=== PATIENT | male | born 1985 | race Caucasian/White ===

== ENCOUNTER 2020-02-20 14:15 | Emergency (ER) | payer SELFPAY ==
[2020-02-20 14:17] VITALS: BP 143/88; PULSE 101; RESP 18; TEMP 35.9; O2SAT 97; BMI 25.1
--- NOTE | 2020-02-20 14:31 | XR_ITS ---
WS: [id number] RIGHT ELBOW: 3 VIEW(S) TECHNIQUE: AP, oblique and lateral. HISTORY: swelling and pain COMPARISON: None available. No acute fractures or dislocation. No joint effusion. Mild soft tissue swelling over the olecranon. XR/XR elbow RT min 3V* [id number] IMPRESSION: Suspect mild olecranon bursitis. No fracture.
[2020-02-20 15:15] VITALS: RESP 17
--- NOTE | 2020-02-20 15:45 | ED_ITS ---
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 it would got dislocated the taking care of this swelling just started this morning though MD Complaint: extremity swelling Location: right and elbow Severity scale (1-10): 1 Quality: other Associated symptoms: Reports no associated symptoms; Deny chest pain, fever(s) or rash Review of Systems Narrative: Right elbow with swelling Const: Denies: fever, chills or body aches Eyes: Denies: change in vision or blurry vision ENMT: Denies: throat pain or nasal congestion Card: Denies: chest pain or shortness of breath on exertion Resp: Denies: shortness of breath, productive cough or non-productive cough GI: Denies: abdominal pain, nausea or vomiting : Denies: difficulty urinating Musc: Denies: extremity pain Skin/Breast: Denies: rash Neuro: Denies: headache Psych: Denies: anxiety or depression James/Lymph: Denies: easy bruising PFSH ED PFSH: Social History Smoking and tobacco status: current every day smoker Physical Exam Const: COMMON NORMALS: no apparent distress, average body habitus and oriented x3 HENMT: COMMON NORMALS: normocephalic HEAD & SCALP: normal to inspection and normocephalic FACE & SINUS: normal facial exam Eye: COMMON NORMALS: conjunctivae normal GENERAL EYE: normal appearance of both eyes CONJUNCTIVA: Yes conjunctivae normal Neck/C-Spine: COMMON NORMALS: no JVD Chest: COMMONS NORMALS: inspection of chest normal Resp: COMMON NORMALS: normal respiratory effort and clear to auscultation bilaterally AUSCULTATION: clear to auscultation bilaterally Cardio: COMMON NORMALS: no JVD, regular rate and regular rhythm RATE: regular rate RHYTHM: regular rhythm GI: COMMON NORMALS: normal to inspection, nondistended, normoactive bowel sounds Extremity: COMMON NORMALS: normal to inspection and full ROM RIGHT UPPER EXTREMITY: Yes elbow joint (Has swelling over olecranial and bursa) Neuro: COMMON NORMALS: oriented x3 Procedures Joint Aspiration/Injection Joint Asp./Inject. 1: Time Out Performed: No Side of body: right Joint Aspirated: elbow Ultrasound Guidance: No Skin Prep: Povidone-Iodine1% Local Anesthetic: lidocaine 1% Amount of anesthesia used (mL): 1 Needle Size Used: 22G Fluid Obtained: turbid Total fluid obtained (mL): 8 Patient Tolerated Procedure: well Course Vital Signs: Vital signs: Vital Signs Temperature 96.7 F L 02/20/20 14:17 Pulse Rate 101 H 02/20/20 14:17 Respiratory Rate 18 02/20/20 14:17 Blood Pressure 143/88 02/20/20 14:17 Pulse Oximetry 97 02/20/20 14:17 Discharge Plan Discharge Prescriptions: No Action No Known Home Medications RF: 0 Coding Level of Care Code ED 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
[2020-02-20 16:11] VITALS: RESP 16
== END 2020-02-20 16:07 | disposition home or self-care (01) ==
PROVIDERS: Emergency Provider Nurse Practitioner Family
DX: R22.31 Localized swelling, mass and lump, right upper limb (principal); F17.210 Nicotine dependence, cigarettes, uncomplicated
CPT/HCPCS: 12345; 20605; 73080; 99282

== ENCOUNTER 2020-05-04 02:22 | Emergency (ER) | payer SELFPAY ==
[2020-05-04] VITALS (13 sets, daily range): BP systolic 122–154; BP diastolic 64–95; PULSE 78–117; RESP 11–25; TEMP 36.7; O2SAT 89–98; BMI 23.0
--- NOTE | 2020-05-04 02:25 | XRR_ITS ---
PROCEDURE INFORMATION: Exam: XR Chest, 1 View Exam date and time: 05/04/2020 3:00 AM Age: 34 years old Clinical indication: Shortness of breath and other: Allergic reaction; Additional info: SOB TECHNIQUE: Imaging protocol: XR of the chest Views: 1 view. Other technique: Frontal portable upright view of the chest. COMPARISON: CR Chest 1 [place] [id number] 05/25/2019 12:40 AM FINDINGS: Lungs: The lungs are clear bilaterally. The pulmonary vasculature is normal. Pleural space: No pleural effusion. No pneumothorax. Heart/Mediastinum: The heart is normal in size and contour. Mediastinum: Stable. Bones/joints: Stable. XR/XR chest 1V portable [id number] IMPRESSION: No acute cardiopulmonary abnormality identified.
--- NOTE | 2020-05-04 02:26 | ECG_ITS ---
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 Measurements Intervals [place] Rate: 100 P: 68 SD: 116 QRS: 76 QRSD: 98 T: 60 QT: 345 QTc: 447 Interpretive Statements SINUS TACHYCARDIA WITH SHORT SD INTERVAL NONSPECIFIC T-WAVE ABNORMALITY ABNORMAL RHYTHM ECG Compared to ECG 11/19/2015 12:39:10 Short SD interval now present T-wave abnormality now present Electronically Signed On 05-04-2020 19:32:43 CDT by Julius Valencia M.D. [id number] f
--- NOTE | 2020-05-04 02:30 | W.ED.ALLEREA ---
HPI - Allergic Reaction General: Chief complaint: Allergic Reaction Stated complaint: ALLERGIC REACTION Time Seen by Provider: 05/04/20 02:25 Source: patient and EMS Mode of arrival: EMS Limitations: no limitations History of Present Illness: HPI narrative: 34-year-old male states he started having allergic reaction roughly 1 hour ago. Patient states he has had allergic reactions has EpiPen has not followed up with organizational research consultant yet. He did not use his EpiPen as he cannot find it. When EMS arrived he had severe facial swelling and shortness of breath. His blood pressures were normal. They gave him IV epinephrine 0.3 along with 25 mg of Benadryl. Patient had a full body rash per them as well. Patient still has slight swelling and wheezing but states he feels much improved edema states he has had an improvement as well. Patient is also admitted to using IV drugs today. MD complaint: allergic reaction and hives Onset (ago): hour(s) Associated symptoms: Deny abdominal pain, nausea or vomiting Review of Systems Const: Denies: fever(s), chills, body aches or change in appetite Eyes: Denies: blurry vision or eye discomfort ENMT: Denies: throat pain or dental pain Card: Denies: chest pain Resp: Reports: dyspnea GI: Denies: abdominal pain, nausea, vomiting or diarrhea : Denies: dysuria Musc: Denies: neck pain or back pain Skin/Breast: Reports: rash Neuro: Denies: headache(s) Psych: Denies: depression James/Lymph: Denies: easy bruising All/Imm: Denies: urticaria PFSH ED PFSH: Social History Smoking and tobacco status: current every day smoker Physical Exam Const: COMMON NORMALS: patient oriented x3 GENERAL APPEARANCE: in distress and ill appearing HENMT: COMMON NORMALS: normocephalic and atraumatic HEAD & SCALP: normocephalic and atraumatic Eye: COMMON NORMALS: Equal, round and reactive pupils present and EOMs intact bilaterally PUPIL: Yes Equal, round and reactive pupils present Neck/C-Spine: COMMON NORMALS: full ROM and supple Chest: COMMONS NORMALS: normal inspection of the chest and normal palpation of entire chest wall Resp: COMMON NORMALS: No retractions and No use of accessory muscles EFFORT & INSPECTION: Yes tachypneic and Yes respiratory distress AUSCULTATION: wheezes Cardio: COMMON NORMALS: regular rhythm and No murmurs present (Cardio) RATE: tachycardic RHYTHM: regular rhythm GI: COMMON NORMALS: Normal to inspection, nondistended, normoactive bowel sounds present, Soft to palpation, non-tender and no masses PALPATION: Yes Soft to palpation Extremity: COMMON NORMALS: normal to inspection and full ROM Neuro: COMMON NORMALS: patient oriented x3, moves all extremities and no focal motor deficits Psych: COMMON NORMALS: mental status grossly normal, Normal thought process present and cooperative THOUGHT PROCESS: Normal thought process present Skin: COMMON NORMALS: no wounds NARRATIVE SKIN EXAM: urticaria to arms Course Vital Signs: Vital signs: Vital Signs Temperature 98.0 F 05/04/20 02:28 Pulse Rate 78 05/04/20 04:07 Respiratory Rate 18 05/04/20 04:07 Blood Pressure 122/64 05/04/20 04:07 Pulse Oximetry 96 05/04/20 04:07 MDM - Allergic Reaction MDM Narrative: Medical decision making narrative: 0305 Walter presents here with severe allergic reaction. Patient required IV epinephrine along with racemic treatments and Benadryl and steroids. I strongly recommended ICU admission and patient refused. I spoke to him multiple times informed him that this could rebound and his condition could worsen greatly. He understands this and he even knows of the risk of . Patient does have medical decision-making capacity. Patient states he will stay here for 1 more hour. 0402 patient still refusing to stay and will sign out AMA. He understands the risks and does have medical decision make capacity. He is to return if he changes his mind or worsens. Lab Data: Labs: Lab Results 05/04/20 05/04/20 Range/Units 02:32 02:32 WBC 14.8 H (4.0-10.0) 10^3/ uL RBC 5.12 (4.1-5.3) 10^6/u L Hgb 14.4 (11.7-16.6) g/dL Hct 44.9 (42.0-52.0) % MCV 87.7 (80-94) fL MCH 28.1 (28.0-34.0) pg MCHC 32.1 (30.0-36.0) g/dL RDW 13.3 (12.1-15.1) % Plt Count 371 (130-400) 10^3/c mm MPV 9.7 (7.4-10.4) fL Neut % (Auto) 27.4 % Lymph % (Auto) 65.8 % [place] % (Auto) 5.5 % Eos % (Auto) 1.0 % Baso % (Auto) 0.2 % Neut # (Auto) 4.1 (1.8-7.7) 10^3/u L Lymph # (Auto) 9.8 H (0.8-4.8) 10^3/u L [place] # (Auto) 0.8 (0.2-0.9) 10^3/u L Eos # (Auto) 0.2 (0.0-0.8) 10^3/u L Baso # (Auto) 0.0 (0.0-0.1) 10^3/u L Nucleated RBC % (a uto) 0 % Nucleated RBCs # 0.0 /100WBC Sodium 135 L (136-145) mmol/L Potassium 3.2 L (3.5-5.1) mmol/L Chloride 98 (98-107) mmol/L Carbon Dioxide 23 (22-29) mmol/L Anion Gap 17.2 (5-19) BUN 14 (6-20) mg/dL Creatinine 0.8 (0.7-1.2) mg/dL GFR Calculation 111.3 (90-130) mL/min Glucose 163 H (65-115) mg/dL Calculated Osmolal ity 280 L (285-295) mOsm/k g Calcium 8.7 (8.5-10.5) mg/dL Total Bilirubin 0.4 (0.15-1.2) mg/dL AST 21 (0-40) U/L ALT 15 (0-41) U/L Alkaline Phosphata se 88 (40-130) IU/L Total Protein 7.0 (6.6-8.7) g/dL Albumin 4.2 (3.5-5.2) g/dL Globulin 2.8 (1.3-4.6) g/dL EKG Data^: EKG 1: Attestation: I personally reviewed and interpreted this EKG as follows: EKG interpretation date: 05/04/20 EKG interpretation time: 02:52 Interpretation: Sinus tachycardia heart rate [address] or T wave abnormalities QRS 98 QTC 402 Critical Care Time Critical Care Time: Critical Care Time: Yes Total Critical Care Time: 36 Attestation: This case had a high probability of a clinically significant, sudden, or life threatening deterioration of this patient's condition which required my full and direct attention, intervention and personal management. Discharge Plan Discharge Patient Disposition: Left Against Medical Advice Clinical Impression: Allergic reaction Qualifiers: Encounter type: initial encounter Qualified Code(s): T78.40XA - Allergy, unspecified, initial encounter Anaphylaxis Qualifiers: Encounter type: initial encounter Qualified Code(s): T78.2XXA - Anaphylactic shock, unspecified, initial encounter Condition: Stable Prescriptions: No Action No Known Home Medications RF: 0 Discharge Orders: Discharge Order (Routine); Ordered 05/04/20 Ordered By: Luisito Rae Discharge Diet: Advance as tolerated Discharge Activity: Resume usual activity Patient Instructions: Anaphylaxis (ED) Discharge Date/Time: 05/04/20 04:08 Coding Level of Care Code ED Critical Care Unit Nurse for Belinda Fwd Exam Comprehensive
[2020-05-04] MEDS: racepinephrine 0.5 mL Neb INHALATION (02:37)
[2020-05-04] MEDS: famotidine 20 mg/2 mL INJ 40 MG IVP (02:39)
[2020-05-04] MEDS: sodium chloride 0.9% 1,000 ML 999 ML IV (02:40)
[2020-05-04] MEDS: diphenhydrAMINE 50 mg/mL SDV 1mL IVP (02:40)
[2020-05-04 02:49] LABS: Alanine Aminotransferase 15 U/L (0-41); Albumin Level 4.2 g/dL (3.5-5.2); Alkaline Phosphatase 88 IU/L (40-130); Anion Gap 17.2 (5-19); Aspartate Amino Transferase 21 U/L (0-40); Blood Urea Nitrogen 14 mg/dL (6-20); Calcium 8.7 mg/dL (8.5-10.5); Carbon Dioxide 23 mmol/L (22-29); Chloride 98 mmol/L (98-107); Creatinine Clr Calc Pharmacy 143.7894; Globulin 2.8 g/dL (1.3-4.6); Glomerular Filtration Rate 111.3 mL/min (90-130); Glucose 163 mg/dL (65-115); Osmolality Calculated 280 mOsm/kg (285-295); Potassium 3.2 mmol/L (3.5-5.1); Sodium 135 mmol/L (136-145); Total Bilirubin 0.4 mg/dL (0.15-1.2)
[2020-05-04 02:57] LABS: Basophils % 0.2 %; Eosinophils # 0.2 10^3/uL (0.0-0.8); Hematocrit 44.9 % (42.0-52.0); Hemoglobin 14.4 g/dL (11.7-16.6); Lymphocytes # 9.8 10^3/uL (0.8-4.8); Lymphocytes % 65.8 %; Mean Corpuscular HGB Conc 32.1 g/dL (30.0-36.0); Mean Corpuscular Hemoglobin 28.1 pg (28.0-34.0); Mean Corpuscular Volume 87.7 fL (80-94); Mean Platelet Volume 9.7 fL (7.4-10.4); Monocytes # 0.8 10^3/uL (0.2-0.9); Monocytes % 5.5 %; Neutrophils # 4.1 10^3/uL (1.8-7.7); Neutrophils % 27.4 %; Nucleated Red Blood Cells % 0 %; Platelet Count 371 10^3/cmm (130-400); Red Blood Count 5.12 10^6/uL (4.1-5.3); Red Cell Distribution Width 13.3 % (12.1-15.1); White Blood Count 14.8 10^3/uL (4.0-10.0)
--- NOTE | 2020-05-04 03:15 | P.HP_ITS ---
Providers/Chief Complaint Admitting Physician: Julius Morgan MD Chief Complaint: REACTION History of Present Illness Walter Andrade is a 34 year old male Medications/Allergies Home Medications Medication Instructions Recorded Confirmed Last Taken Type No Known Home Medications 02/20/20 02/20/20 Unknown History Allergies Allergy/AdvReac Type Severity Reaction Status Date / Time No Known Allergies Allergy Verified 02/20/20 14:21 PFSH Acute PFSH: Social History Smoking and tobacco status: current every day smoker Vitals/I&O/Wt Last Vital Signs Temp 98.0 F 05/04/20 02:28 Pulse 105 H 05/04/20 02:51 Resp 14 05/04/20 02:51 BP 129/85 05/04/20 02:45 Pulse Ox 97 05/04/20 02:51 Weight last 48 hrs Weight 77.111 kg Data : 05/04/20 02:32 05/04/20 02:32 Coding Level of Care Code Acute 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
--- NOTE | 2020-05-04 03:18 | PC.NURSE ---
went in and spoke with pt he refuses to stay even with discussing the fact that he could go home and dei and he states he is going home.
--- NOTE | 2020-05-04 03:19 | PM.EVENT ---
Event Note Event Note: ER physician called me at 3:18 AM to admit patient for anaphylactic reaction to ICU. I received another call while I was looking up his previous records at 3:19 AM that patient wants to leave AGAINST MEDICAL ADVICE. Dr. perez has counseled him. I have not evaluated the patient myself. No physician patient interaction from hospitalist team established.
== END 2020-05-04 04:08 | disposition left against medical advice (07) ==
LOC: ER 03:04 → ICU 03:20 → ER 03:57
PROVIDERS: Emergency Provider Emergency Medicine
DX: T78.2XXA Anaphylactic shock, unspecified, initial encounter (principal); T78.40XA Allergy, unspecified, initial encounter; F17.210 Nicotine dependence, cigarettes, uncomplicated
CPT/HCPCS: 12345; 71045; 80053; 85025; 93005; 94640; 96360; 96361; 96374; 96375; 99283; 99284; J1200; J2930; J3490; J7030

== ENCOUNTER 2020-09-15 07:01 | Emergency (ER) | payer SELFPAY ==
[2020-09-15] VITALS (9 sets, daily range): BP systolic 111–134; BP diastolic 79–93; PULSE 85–118; RESP 17–22; TEMP 36.1; O2SAT 93–99; BMI 3124.4
--- NOTE | 2020-09-15 07:10 | XR_ITS ---
WS: [id number] Portable AP upright chest, 09/15/2020 Clinical Data: dyspnea/cough Comparison: Portable chest, 05/04/2020. Findings: No nodules, masses or effusions are seen. The heart is normal. The pulmonary vascularity is not increased. No pneumonia or pneumothorax is seen. Monitor leads on the chest wall. XR/XR chest 1V portable [id number] Impression: Negative chest.
--- NOTE | 2020-09-15 07:10 | ECG_ITS ---
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 Measurements Intervals [place] Rate: 99 P: 72 DE: 148 QRS: 72 QRSD: 96 T: 56 QT: 334 QTc: 430 Interpretive Statements SINUS RHYTHM Compared to ECG 05/04/2020 02:52:26 Sinus tachycardia no longer present Short DE interval no longer present T-wave abnormality no longer present Electronically Signed On 09-15-2020 10:11:59 LEATHER SKINNER by Horace Feliciano M.D. [id number]
[2020-09-15] MEDS: ipratropium-albuterol 3 mL Neb INHALATION (07:17)
[2020-09-15 07:19] LABS: ABG PCO2 47.6 mmHg (35-45); ABG PH Result 7.33 (7.35-7.45); Arterial Blood Gas Hematocrit 47.8 % (42-52); Base Excess ABG -1.7 mmol/L (-2.0-2.0); Blood Gas Allen Test Pos; Blood Gas Sample Type Arterial; Carboxyhemoglobin 1.6 %THgb (0.4-20.1); HCO3 ABG 24.8 mmol/L (22-26); HGB O2 Sat 98.3 % (95-100); Ionized Calcium Level - ABG 1.2 mmol/L (1.1-1.4); Methemoglobin 0.5 % (0.4-1.5); Oxygen Saturation ABG > 100.0; Potassium Level - ABG 3.1 mmol/L (3.5-5.0); Total Hemoglobin 15.6 g/dL (14-18)
[2020-09-15 07:20] LABS: Blood Gas Operator Identificat HARKR; Blood Gas Sample Site Radial, left; Oxygen Device NRB
--- NOTE | 2020-09-15 07:23 | W.ED.ALLEREA ---
HPI - Allergic Reaction General: Chief complaint: Allergic Reaction Stated complaint: allergic reaction Time Seen by Provider: 09/15/20 07:10 History of Present Illness: HPI narrative: 34-year-old male presents emergency room via EMS with allergic reaction. He has oxygen saturations in the mid 80s on arrival on 6 L by nasal cannula. He had received multiple medications prior to arrival including Solu-Medrol 125 mg epinephrine 0.5x2 and Benadryl 50 mg. The only thing that he knows that he was exposed to recently he states is exposure to cats. complaint: allergic reaction Onset (ago): minute(s) Exposure: other (? Animal dander) Associated symptoms: Reports difficulty breathing, facial swelling, hoarseness, itching, lip swelling and nausea; Deny abdominal pain, dysphagia, dizziness, rash, tongue swelling or vomiting Severity: severe Treatment prior to arrival: benadryl, epinephrine, oxygen and steroids Previous Allergic Reaction History: none Review of Systems Const: Denies: fever(s), chills, body aches, change in appetite, fatigue or malaise ENMT: Reports: hoarseness Card: Denies: chest pain, edema, dyspnea on exertion or orthopnea Resp: Denies: dyspnea, productive cough or non-productive cough GI: Reports: nausea; Denies: abdominal pain, vomiting or dysphagia : Denies: flank pain, dysuria, urinary frequency or urinary urgency Skin/Breast: Denies: rash or pruritus Neuro: Denies: dizziness All/Imm: Reports: facial swelling; Denies: tongue swelling [facility] ED PFSH: Medical History (Updated 09/17/20 @ 09:52 by Chilo Bella DO) Anaphylaxis Family History (Updated 09/15/20 @ 14:36 by Brandon Scott MD) Other CAD (coronary artery disease) Social History (Updated 09/15/20 @ 14:36 by Brandon Scott MD) Smoking and tobacco status: current every day smoker Alcohol intake: never Physical Exam Const: GENERAL APPEARANCE: cooperative ORIENTATION/CONSCIOUSNESS: Yes awake, Yes oriented to person, Yes oriented to place and Yes oriented to time HENMT: COMMON NORMALS: normocephalic, atraumatic and hearing grossly normal bilaterally HEAD & SCALP: normocephalic and atraumatic OTHER: Facial swelling of the lips eyelids sparing of the tongue however. Eye: COMMON NORMALS: Equal, round and reactive pupils present, EOMs intact bilaterally, conjunctivae normal and no scleral icterus CONJUNCTIVA: Yes conjunctivae normal PUPIL: Yes Equal, round and reactive pupils present Neck/C-Spine: COMMON NORMALS: full ROM, no lymphadenopathy, supple and no JVD OTHER: Mild stridor Lymph: LYMPHATIC: no lymphadenopathy noted and no lymphedema noted Resp: AUSCULTATION: wheezes Cardio: COMMON NORMALS: no JVD GI: COMMON NORMALS: Soft to palpation and No hepatosplenomegaly present AUSCULTATION: Yes normoactive bowel sounds PALPATION: Yes Soft to palpation, No Tenderness to palpation present (GI), No Guarding due to palpation present (GI) and Yes No hepatosplenomegaly present Extremity: COMMON NORMALS: normal to inspection, capillary refill normal, no clubbing, cyanosis or edema, no calf tenderness and no pedal edema Neuro: SENSORIUM/ORIENTATION: Yes oriented to person, Yes oriented to place and Yes oriented to time Course Vital Signs: Vital signs: Vital Signs Temperature 97.0 F L 09/15/20 07:03 Pulse Rate 85 09/15/20 12:23 Respiratory Rate 17 09/15/20 12:23 Blood Pressure 123/79 09/15/20 12:23 Pulse Oximetry 95 09/15/20 12:23 MDM - Allergic Reaction MDM Narrative: Medical decision making narrative: Patient was going to be admitted to the ICU for observation to unknown allergen. Patient improved while he was in the ER and decided to leave AMA we attempted to dissuade him against that advising him that he could get a rebound of the allergic reaction which could be fatal he expressed understanding and still wished to leave Lab Data: Labs: Lab Results 09/15/20 09/15/20 09/15/20 Range/Units 07:09 07:42 07:54 WBC 18.1 H (4.0-10.0) 10^3/ uL RBC 5.31 H (4.1-5.3) 10^6/u L Hgb 15.2 (11.7-16.6) g/dL Hct 47.3 (42.0-52.0) % MCV 89.1 (80-94) fL MCH 28.6 (28.0-34.0) pg MCHC 32.1 (30.0-36.0) g/dL RDW 13.4 (12.1-15.1) % Plt Count 404 H (130-400) 10^3/c mm MPV 9.1 (7.4-10.4) fL Neut % (Auto) 49.4 % Lymph % (Auto) 45.2 % [place] % (Auto) 4.0 % Eos % (Auto) 1.0 % Baso % (Auto) 0.2 % Neut # (Auto) 8.95 H (1.8-7.7) 10^3/u L Lymph # (Auto) 8.2 H (0.8-4.8) 10^3/u L [place] # (Auto) 0.7 (0.2-0.9) 10^3/u L Eos # (Auto) 0.2 (0.0-0.8) 10^3/u L Baso # (Auto) 0.0 (0.0-0.1) 10^3/u L Nucleated RBC % (a uto) 0 % Nucleated RBCs # 0.0 /100WBC Specimen Type Arterial Sample Site Radial, left ABG pH 7.33 L (7.35-7.45) ABG pCO2 47.6 H (35-45) mmHg ABG pO2 315.0 H (80.0-100.0) mmH g ABG HCO3 24.8 (22-26) mmol/L ABG O2 Saturation > 100.0 ABG Base Excess -1.7 (-2.0-2.0) mmol/ L Evelio Test Pos A-a O2 Gradient Not Reportable Hematocrit 47.8 (42-52) % Hgb O2 Saturation 98.3 (95-100) % Carboxyhemoglobin 1.6 (0.4-20.1) %THgb Methemoglobin 0.5 (0.4-1.5) % Total Hemoglobin 15.6 (14-18) g/dL Sodium 142.0 (131-143) mmol/L Potassium 3.1 L (3.5-5.0) mmol/L Glucose 170.0 H (70-115) mg/dL Ionized Calcium 1.2 (1.1-1.4) mmol/L O2 Delivery Device Nrb FiO2 15.0 % Embossing Press Operator Apprentice ID Harkr Chloride (98-107) mmol/L Carbon Dioxide (22-29) mmol/L Anion Gap (5-19) BUN (6-20) mg/dL Creatinine (0.7-1.2) mg/dL GFR Calculation (90-130) mL/min Calculated Osmolal ity (285-295) mOsm/k g Calcium (8.5-10.5) mg/dL Total Bilirubin (0.15-1.2) mg/dL AST (0-40) U/L ALT (0-41) U/L Alkaline Phosphata se (40-130) IU/L Total Protein (6.6-8.7) g/dL Albumin (3.5-5.2) g/dL Globulin (1.3-4.6) g/dL Urine Color Yellow (Yellow) Urine Appearance Clear (CLEAR) Urine pH 5.0 (5-7) Ur Specific Gravit y 1.025 (1.005-1.030) Urine Protein Trace (Negative) Urine Glucose (UA) Norm (Normal) Urine Ketones 1+ H (Negative) Urine Blood Neg (Negative) Urine Nitrate Negative (Negative) Urine Bilirubin 1+ H (Negative) Urine Urobilinogen 4 H (Negative) mg/dL Ur Leukocyte Xiao ase Negative (Negative) Urine RBC 0-4 H (0-2) /hpf Urine WBC 0-4 H (0-5) /hpf Ur Squamous Epith Cells 0-4 H (0-5) /hpf Calcium Oxalate Cr ystal 10-15 H /hpf Amorphous Sediment Not Reportable Urine Bacteria 1+ H (NONE) /hpf Urine Mucus 4+ /hpf 09/15/20 Range/Units 07:54 WBC (4.0-10.0) 10^3/ uL RBC (4.1-5.3) 10^6/u L Hgb (11.7-16.6) g/dL Hct (42.0-52.0) % MCV (80-94) fL MCH (28.0-34.0) pg MCHC (30.0-36.0) g/dL RDW (12.1-15.1) % Plt Count (130-400) 10^3/c mm MPV (7.4-10.4) fL Neut % (Auto) % Lymph % (Auto) % [place] % (Auto) % Eos % (Auto) % Baso % (Auto) % Neut # (Auto) (1.8-7.7) 10^3/u L Lymph # (Auto) (0.8-4.8) 10^3/u L [place] # (Auto) (0.2-0.9) 10^3/u L Eos # (Auto) (0.0-0.8) 10^3/u L Baso # (Auto) (0.0-0.1) 10^3/u L Nucleated RBC % (a uto) % Nucleated RBCs # /100WBC Specimen Type Sample Site ABG pH (7.35-7.45) ABG pCO2 (35-45) mmHg ABG pO2 (80.0-100.0) mmH g ABG HCO3 (22-26) mmol/L ABG O2 Saturation ABG Base Excess (-2.0-2.0) mmol/ L Evelio Test A-a O2 Gradient Hematocrit (42-52) % Hgb O2 Saturation (95-100) % Carboxyhemoglobin (0.4-20.1) %THgb Methemoglobin (0.4-1.5) % Total Hemoglobin (14-18) g/dL Sodium 140 (131-143) mmol/L Potassium 3.4 L (3.5-5.0) mmol/L Glucose 172 H (70-115) mg/dL Ionized Calcium (1.1-1.4) mmol/L O2 Delivery Device FiO2 % Embossing Press Operator Apprentice ID Chloride 104 (98-107) mmol/L Carbon Dioxide 25 (22-29) mmol/L Anion Gap 14.4 (5-19) BUN 17 (6-20) mg/dL Creatinine 0.9 (0.7-1.2) mg/dL GFR Calculation 97.2 (90-130) mL/min Calculated Osmolal ity 296 H (285-295) mOsm/k g Calcium 8.8 (8.5-10.5) mg/dL Total Bilirubin 0.6 (0.15-1.2) mg/dL AST 79 H (0-40) U/L ALT 57 H (0-41) U/L Alkaline Phosphata se 152 H (40-130) IU/L Total Protein 6.9 (6.6-8.7) g/dL Albumin 4.1 (3.5-5.2) g/dL Globulin 2.8 (1.3-4.6) g/dL Urine Color (Yellow) Urine Appearance (CLEAR) Urine pH (5-7) Ur Specific Gravit y (1.005-1.030) Urine Protein (Negative) Urine Glucose (UA) (Normal) Urine Ketones (Negative) Urine Blood (Negative) Urine Nitrate (Negative) Urine Bilirubin (Negative) Urine Urobilinogen (Negative) mg/dL Ur Leukocyte Xiao ase (Negative) Urine RBC (0-2) /hpf Urine WBC (0-5) /hpf Ur Squamous Epith Cells (0-5) /hpf Calcium Oxalate Cr ystal /hpf Amorphous Sediment Urine Bacteria (NONE) /hpf Urine Mucus /hpf Discharge Plan Discharge Patient Disposition: Left Against Medical Advice Clinical Impression: Anaphylaxis, Angioedema Prescriptions: No Action Unable to Assess RF: 0 Coding Level of Care Code ED Customer Solutions Representative for Chg Fwd Exam Comprehensive
[2020-09-15 08:09] LABS: Basophils % 0.2 %; Eosinophils # 0.2 10^3/uL (0.0-0.8); Hematocrit 47.3 % (42.0-52.0); Hemoglobin 15.2 g/dL (11.7-16.6); Lymphocytes # 8.2 10^3/uL (0.8-4.8); Lymphocytes % 45.2 %; Mean Corpuscular HGB Conc 32.1 g/dL (30.0-36.0); Mean Corpuscular Hemoglobin 28.6 pg (28.0-34.0); Mean Corpuscular Volume 89.1 fL (80-94); Mean Platelet Volume 9.1 fL (7.4-10.4); Monocytes # 0.7 10^3/uL (0.2-0.9); Neutrophils # 8.95 10^3/uL (1.8-7.7); Neutrophils % 49.4 %; Nucleated Red Blood Cells % 0 %; Platelet Count 404 10^3/cmm (130-400); Red Blood Count 5.31 10^6/uL (4.1-5.3); Red Cell Distribution Width 13.4 % (12.1-15.1); White Blood Count 18.1 10^3/uL (4.0-10.0)
[2020-09-15 08:27] LABS: Alanine Aminotransferase 57 U/L (0-41); Albumin Level 4.1 g/dL (3.5-5.2); Alkaline Phosphatase 152 IU/L (40-130); Anion Gap 14.4 (5-19); Aspartate Amino Transferase 79 U/L (0-40); Blood Urea Nitrogen 17 mg/dL (6-20); Calcium 8.8 mg/dL (8.5-10.5); Carbon Dioxide 25 mmol/L (22-29); Chloride 104 mmol/L (98-107); Globulin 2.8 g/dL (1.3-4.6); Glomerular Filtration Rate 97.2 mL/min (90-130); Glucose 172 mg/dL (65-115); Osmolality Calculated 296 mOsm/kg (285-295); Potassium 3.4 mmol/L (3.5-5.1); Sodium 140 mmol/L (136-145); Total Bilirubin 0.6 mg/dL (0.15-1.2); Total Protein 6.9 g/dL (6.6-8.7)
[2020-09-15 08:37] LABS: Add Urine Microscopic? YES; Bilirubin Urine 1+ (Negative); Blood Urine Neg (Negative); Glucose Urine UA Norm (Normal); Ketones Urine 1+ (Negative); Leukocyte Esterase Urine Negative (Negative); Nitrate Urine Negative (Negative); Protein Urine Trace (Negative); Specific Gravity, Urine 1.025 (1.005-1.030); Urine Appearance Clear (CLEAR); Urine Color Yellow (Yellow); Urobilinogen Urine 4 mg/dL (Negative)
[2020-09-15 08:38] LABS: Add Urine Culture? No; Bacteria Urine 1+ /hpf; Mucus Urine 4+ /hpf; RBC Urine 0-4 /hpf (0-2); Squamous Epithelial Cell Urine 0-4 /hpf (0-5); WBC Urine 0-4 /hpf (0-5)
[2020-09-15 09:21] LABS: Slide Review Slide Review Perform
--- NOTE | 2020-09-15 14:32 | PM.HP ---
Providers/Chief Complaint Chief Complaint: allergic reaction History of Present Illness Walter Andrade is a 34 year old male that presented to the emergency department with history of severe allergic reaction. Patient reports he believes he is allergic to cat dander. He has had about 5 episodes of severe allergy/anaphylaxis. He reports he can be very short of breath, wheeze, have significant lip and facial swelling. He reports no concern of food intake contributing. He reports he is exposed to cats occasionally as his girlfriend has them. He carries an EpiPen which she did use prior to arrival at the emergency department. From my understanding he also received Solu-Medrol, Benadryl and 2 doses of epinephrine in route. He currently reports he is feeling much better. While in the emergency department he has not received any further treatment other than an albuterol and Atrovent. He is weaned off oxygen. He reports his last drug use was approximately 3 days ago. He denies any other medical problems. Review of Systems General: Reports: 10 or more systems reviewed and unremarkable except in HPI and below Const: Denies: fever(s) Eyes: Denies: change in vision ENMT: Denies: throat pain Card: Denies: chest pain Resp: Reports: dyspnea, wheezing and stridor GI: Denies: abdominal pain : Denies: flank pain Musc: Denies: neck pain Skin/Breast: Reports: rash, pruritus and erythema Neuro: Denies: headache(s) Psych: Denies: anxiety Endo: Denies: polyuria James/Lymph: Denies: easy bruising All/Imm: Reports: urticaria, throat swelling, tongue swelling, facial swelling and acute wheezing Medications/Allergies Home Medications Medication Instructions Recorded Confirmed Last Taken Type Unable to Assess 09/15/20 09/15/20 Unknown History Allergies Allergy/AdvReac Type Severity Reaction Status Date / Time No Known Allergies Allergy Verified 09/15/20 07:08 PFSH Acute PFSH: Medical History (Updated 09/15/20 @ 14:35 by Brandon Scott MD) Anaphylaxis Family History (Updated 09/15/20 @ 14:36 by Brandon Scott MD) Other CAD (coronary artery disease) Social History (Updated 09/15/20 @ 14:36 by Brandon Scott MD) Smoking and tobacco status: current every day smoker Alcohol intake: never Substance/Drug Use: current Substance/Drug use frequency: few times a week Substance/Drug use type: Marijuana and Amphetamines Vitals/I&O/Wt Last Vital Signs Temp 97.0 F L 09/15/20 07:03 Pulse 85 09/15/20 12:23 Resp 17 09/15/20 12:23 BP 123/79 09/15/20 12:23 Pulse Ox 95 09/15/20 12:23 Weight last 48 hrs Weight 72.575 kg Physical Exam Narrative: EXAM NARRATIVE: General exam is no apparent distress. No stridor HEENT: Pupils equally round. Oropharynx clear. Slight lip swelling is noted. Neck is supple no lymphadenopathy, or thyromegaly Cardiovascular regular rate and rhythm without murmur, no S3 or S4 Lungs clear no wheezing or crackles Abdomen is soft nontender with positive bowel sounds. No obvious organomegaly deferred Extremities no cyanosis clubbing or edema, cap refill brisk Skin a few scattered hives Neuro no obvious focal deficits Data : 09/15/20 07:54 09/15/20 07:54 Other data: Chest x-ray is clear. EKG demonstrates normal sinus rhythm, normal axis ABG with pH 7.33, PCO2 of 48, PO2 of 315. LFTs slightly elevated Urinalysis without evidence of infection A&P Assessment and plan (1) Anaphylaxis: Severe allergy on presentation, with multiple doses of epinephrine given with airway compromise that is now resolved. Warrants close observation in the ICU. Continue steroids in the form of prednisone Continue Pepcid Initiate loratadine, with Benadryl as needed Will need a prescription for EpiPen upon discharge He has been recommended referral to director [facility] before, but have reinforced this with him again. Obviously these episodes are life-threatening. He is convinced this may be secondary to cat dander. I have recommended to him to avoid contact with cats. Status: Acute (2) Methamphetamine use: Counseled on abstinence Status: Acute Attestations Medical Necessity Statement*: Will need less than 2 midnight stay, for evaluation and treatment of anaphylaxis Time Spent in Patient Care: Greater than 35 minutes Coding Level of Care Code Acute Compressed Air Pile Driver Operator for Belinda Fwamauri Diagnoses Anaphylaxis T78.2XXA Methamphetamine use F15.10
== END 2020-09-15 15:04 | disposition left against medical advice (07) ==
PROVIDERS: Emergency Provider Family Medicine
DX: T78.2XXA Anaphylactic shock, unspecified, initial encounter (principal); T78.3XXA Angioneurotic edema, initial encounter; F17.210 Nicotine dependence, cigarettes, uncomplicated; Z53.21 Procedure and treatment not carried out due to patient leaving prior to being seen by health care provider
CPT/HCPCS: 12345; 36600; 71045; 80051; 80053; 81001; 82330; 82805; 83605; 85025; 93005; 94640; 99281; 99284

== ENCOUNTER 2020-10-21 11:39 | Emergency (ER) | payer SELFPAY ==
[2020-10-21 12:13] VITALS: BP 134/79; PULSE 118; RESP 16; TEMP 36.5; O2SAT 96; BMI 23.0
--- NOTE | 2020-10-21 12:41 | W.ED.EAR ---
HPI - Ear Problem General: Chief complaint: Ear Stated complaint: BACK PAIN Time Seen by Provider: 10/21/20 12:28 History of Present Illness: HPI Narrative: Patient is a 34-year-old male comes to the ED with left ear pain and lower back pain. Patient says the ear pain started approximately a week ago. He says he woke up 1 morning and he was having left ear pain. Denies any injury or trauma to cause start of pain. He said he has had some bloody and orange drainage from left ear. Patient is also complaining of acute on chronic lower back pain with pain radiating down left leg. Denies any bladder or bowel incontinence, pelvic anesthesia or weakness to extremities. Associated symptoms: Reports ear or mastoid pain; Denies fever(s), headache(s) or neck pain Review of Systems Const: Denies: fever(s), chills or fatigue Eyes: Denies: change in vision or eye discomfort ENMT: Reports: ear or mastoid pain and ear discharge (bloody drainage); Denies: throat pain, odynophagia, nasal discharge or nasal congestion Card: Denies: chest pain, palpitations, edema, swelling of feet/ankles, dyspnea on exertion or orthopnea Resp: Denies: dyspnea, productive cough or non-productive cough GI: Denies: abdominal pain, nausea, vomiting, diarrhea, constipation or hematochezia : Denies: flank pain, difficulty urinating, dysuria or hematuria Musc: Reports: back pain; Denies: neck pain or extremity swelling Skin/Breast: Denies: rash or new lesions Neuro: Denies: headache(s), numbness in extremities or weakness in extremities PFS ED PFSH: Medical History Anaphylaxis Family History Other CAD (coronary artery disease) Social History Smoking and tobacco status: current every day smoker Alcohol intake: never Physical Exam Const: COMMON NORMALS: no acute distress, patient oriented x3, healthy appearing and alert GENERAL APPEARANCE: cooperative and comfortable HENMT: COMMON NORMALS: normocephalic HEAD & SCALP: normocephalic TYMPANIC MEMBRANE: TM normal on the right and TM abnormal TM laterality: left Details: erythematous and perforation Details: without discharge (No discharge seen on exam. Patient reported bloody discharge couple days ago.) MOUTH: Normal oral and palatal mucosa present THROAT: posterior oropharynx normal and uvula midline Eye: COMMON NORMALS: Equal, round and reactive pupils present PUPIL: Yes Equal, round and reactive pupils present Neck/C-Spine: COMMON NORMALS: supple GENERAL: Yes normal visual inspection Resp: COMMON NORMALS: normal respiratory effort, No retractions, No use of accessory muscles and clear to auscultation bilaterally AUSCULTATION: clear to auscultation bilaterally Cardio: COMMON NORMALS: regular rate, regular rhythm, S1 normal heart sound present, S2 normal heart sound present, No gallops present (Cardio), No clicks present (Cardio), No murmurs present (Cardio) and Peripheral pulses 2+ throughout RATE: regular rate RHYTHM: regular rhythm HEART SOUNDS: S1 normal heart sound present and S2 normal heart sound present PERIPHERAL PULSES: Peripheral pulses 2+ throughout GI: COMMON NORMALS: Normal to inspection, nondistended, normoactive bowel sounds present, Soft to palpation, non-tender and no masses PALPATION: Yes Soft to palpation : COMMON NORMALS: Yes no CVA tenderness BLADDER/KIDNEY EXAM: Yes no CVA tenderness Back/Pelvis: COMMON NORMALS: no CVA tenderness LUMBAR SPINE/LOWER BACK: Yes pain with ROM, No lumbar spinal tenderness, Yes paraspinal muscle tenderness Lumbar paraspinal muscle tenderness: left left lumbar paraspinal muscle tenderness: L3 and L4 and No mass present Extremity: COMMON NORMALS: normal to inspection Neuro: COMMON NORMALS: patient oriented x3 and moves all extremities SENSORIUM/ORIENTATION: Yes alert Skin: GENERAL SKIN EXAM: dry skin Course Vital Signs: Vital signs: Vital Signs Temperature 97.7 F 10/21/20 12:13 Pulse Rate 95 10/21/20 12:58 Respiratory Rate 14 10/21/20 12:58 Blood Pressure 131/81 10/21/20 12:58 Pulse Oximetry 97 10/21/20 12:58 MDM - Ear MDM Narrative: Medical decision making narrative: Patient is a 34-year-old male who comes to the ED with left ear pain and lower back pain that radiates down left leg. Denies any cauda equina symptoms. Left ear exam showed some erythema of the TM with perforation. Patient was diagnosed with otitis media with perforation of TM. He was put on a prescription of amoxicillin and Ciprodex eardrops. He was also given a prescription for ibuprofen 800 mg tablets and Medrol Dosepak to help with back pain. I placed an order with case management for patient be referred to ENT doctor. Return to ED precautions given. Patient understood and agree with plan. Discharge Plan Discharge Patient Disposition: Home Clinical Impression: Lumbar radiculopathy Otitis media Qualifiers: Otitis media type: suppurative Chronicity: acute Laterality: left Recurrence: non-recurrent Spontaneous tympanic membrane rupture: with spontaneous rupture Qualified Code(s): H66.012 - Acute suppurative otitis media with spontaneous rupture of ear drum, left ear Condition: Stable Prescriptions: New Medrol (Vish) 4 mg tablets,dose pack See Rx Instructions .ROUTE .COMPLEX Qty: 21 RF: 0 ibuprofen 800 mg tablet 800 mg PO Q8H PRN (Reason: pain) Qty: 30 RF: 0 Ciprodex 0.3-0.1 % drops,suspension 4 drp otic (ear) BID 7 Days Qty: 7.5 RF: 0 amoxicillin 500 mg capsule 500 mg PO BID 10 Days Qty: 20 RF: 0 No Action Unable to Assess RF: 0 Discharge Orders: Discharge ED (Routine); Ordered 10/21/20 Ordered By: Layo Aranda Discharge Diet: Regular Discharge Activity: Increase activity as tolerated Patient Instructions: Otitis Media (ED), Lumbar Radiculopathy (ED) Activity Restrictions/Additional Instructions: Follow-up with medical provider as directed. Case management should be contacting you in the next several days to set up an appointment with ENT. Take medications as prescribed. Return to the ER or your medical provider if condition worsens. Please read and understand discharge instructions. If any questions, please ask. Coding Level of Care Code ED Automobile Engine Assembler for Belinda Fwamauri Exam Comprehensive
[2020-10-21 12:58] VITALS: BP 131/81; PULSE 95; RESP 14; O2SAT 97
[2020-10-21] MEDS: HYDROcodone-acetaminophen 7.5-325 mg Tablet 1 TAB PO (13:06)
--- NOTE | 2020-10-22 09:17 | DCPLANNER ---
off track betting manager had message to schedule a follow up appointment for patient with ENT. off track betting manager emailed both Florence and Marlene at [facility] General Surgery, gave clinic patients information. Patients information will be printed and reviewed. Clinic will call patient with appointment information.
--- NOTE | 2020-11-08 16:22 | DCPLANNER ---
harvest manager contacted general surgery to confirm if an appointment had been scheduled for patient. harvest manager was told that patient declined appointment at this time due to lack of insurance, patient will contact clinic when he wants to schedule an appointment.
== END 2020-10-21 13:09 | disposition home or self-care (01) ==
PROVIDERS: Emergency Provider Physician Assistant
DX: M54.16 Radiculopathy, lumbar region (principal); H66.012 Acute suppurative otitis media with spontaneous rupture of ear drum, left ear; F17.210 Nicotine dependence, cigarettes, uncomplicated
CPT/HCPCS: 12345; 99281; 99282

== ENCOUNTER 2020-11-15 16:02 | Emergency (ER) | payer SELFPAY ==
[2020-11-15 16:15] VITALS: BP 153/99; PULSE 102; RESP 14; TEMP 36.7; O2SAT 99; BMI 24.4
--- NOTE | 2020-11-15 16:53 | W.ED.EAR ---
HPI - Ear Problem General: Chief complaint: Ear Stated complaint: L EAR HEARING LOSS, LOWER BACK PAIN Time Seen by Provider: 11/15/20 16:36 Source: patient Mode of arrival: ambulatory Limitations: no limitations History of Present Illness: HPI Narrative: Patient is a 34-year-old male who presents to ED today with a complaint of left ear pain and hearing loss as well as chronic lower back pain. Patient was seen here at our facility on 10/21 for same complaints. Patient has never seen a PCP for his back pain. At his last visit he was diagnosed with a left TM perforation and placed on antibiotics. Provider note at the time stated patient would be referred to ENT. Patient states he never followed up with us. He does not have insurance. Patient has not noticed any drainage from the ear. He has not had any injury or trauma. No facial swelling or facial palsies. Denies fever/chills. Patient states he suffers from left lower back pain almost daily x four years. He states sometimes it will radiate around into his abdomen and down the anterior portion of his left thigh. He is not having any difficulty with urinary or bowel. He denies any alleviating or worsening factors to his discomfort. MD Complaint: ear pain and other (low back pain) Location: left ear Duration: intermittent Severity: moderate Relieving factors: nothing Exacerbating factors: nothing Discharge from ear: no Associated symptoms: Reports ear or mastoid pain and hearing loss; Denies fever(s), headache(s) or neck pain Review of Systems Const: Denies: fever(s), chills, body aches, change in appetite, change in weight, fatigue or malaise Eyes: Denies: change in vision, blurry vision, photophobia, eye discharge, floaters or seeing flashes ENMT: Reports: ear or mastoid pain and change in hearing; Denies: throat pain, enlarged tonsils, odynophagia, swelling of lips/tongue, oral sores, ear discharge, nasal discharge, nasal congestion, nasal obstruction, epistaxis, post nasal drip or sinus pain Card: Denies: chest pain Resp: Denies: dyspnea, productive cough or non-productive cough GI: Denies: abdominal pain, nausea, vomiting or diarrhea : Denies: flank pain, difficulty urinating, dysuria, urinary frequency, urinary urgency or urinary hesitancy Musc: Reports: back pain; Denies: neck pain, extremity pain, extremity swelling, joint pain or joint swelling Skin/Breast: Denies: rash Neuro: Denies: headache(s), numbness in extremities, weakness in extremities or sensory changes All/Imm: Denies: facial swelling or seasonal rhinorrhea PFSH ED PFSH: Medical History Anaphylaxis Family History Other CAD (coronary artery disease) Social History Smoking and tobacco status: current every day smoker Alcohol intake: never Physical Exam Const: COMMON NORMALS: no acute distress, average body habitus, patient oriented x3, no limitations, healthy appearing, alert and well nourished GENERAL APPEARANCE: cooperative ORIENTATION/CONSCIOUSNESS: Yes awake, Yes oriented to person, Yes oriented to place and Yes oriented to time HENMT: COMMON NORMALS: normocephalic, atraumatic, hearing grossly normal bilaterally, external ears normal, EAC's normal, TM's normal bilaterally, Normal external nose present, Normal nasal mucous membranes and turbinates present, moist oral mucous membranes and oropharynx normal HEAD & SCALP: normal to inspection, normocephalic and atraumatic FACE & SINUS: normal facial exam and sinuses nontender NOSE: Normal external nose present and Normal nasal mucous membranes and turbinates present EXTERNAL EAR: Yes external ears normal EXTERNAL AUDITORY CANAL: EAC's normal TYMPANIC MEMBRANE: TM's normal bilaterally MOUTH: Normal oral and palatal mucosa present, lip normal and tongue normal THROAT: posterior oropharynx normal, tonsils normal and uvula midline Eye: COMMON NORMALS: Equal, round and reactive pupils present, EOMs intact bilaterally and conjunctivae normal GENERAL EYE: appearance normal, both eyes and all related structures CONJUNCTIVA: Yes conjunctivae normal PUPIL: Yes Equal, round and reactive pupils present Neck/C-Spine: COMMON NORMALS: full ROM, no lymphadenopathy and no meningeal signs : COMMON NORMALS: Yes no CVA tenderness BLADDER/KIDNEY EXAM: Yes no CVA tenderness Back/Pelvis: COMMON NORMALS: no CVA tenderness, thoracic and lumbar spine normal to inspection, no thoracic nor lumbar tenderness, thoraco-lumbar ROM normal and straight leg raise negative bilaterally SACROILIAC JOINTS: Yes SI joint(s) abnormal SI joint details: tender to palpation (left) Neuro: KARY COMA SCALE: document GCS findings Milton coma scale eye opening: Spontaneous Kary coma scale verbal response: Orientated Milton coma scale motor response: Obey commands Kary coma scale total score: 15 COMMON NORMALS: patient oriented x3, CN's II-XII intact bilaterally, moves all extremities, no focal motor deficits, no sensory deficits noted and gait normal SENSORIUM/ORIENTATION: Yes alert, Yes oriented to person, Yes oriented to place and Yes oriented to time MENINGEAL SIGNS: Yes no meningeal signs MOTOR EXAM: 5/5 motor strength present throughout Skin: COMMON NORMALS: no rashes or lesions noted GENERAL SKIN EXAM: no rashes or lesions noted Course Vital Signs: Vital signs: Vital Signs Temperature 98.0 F 11/15/20 16:15 Pulse Rate 102 H 11/15/20 16:15 Respiratory Rate 14 11/15/20 16:15 Blood Pressure 153/99 11/15/20 16:15 Pulse Oximetry 99 11/15/20 16:15 MDM - Ear MDM Narrative: Medical decision making narrative: I do not appreciate any abnormality on patient's left ear/tympanic membrane on today's visit. It appears the perforation he had last month has healed. He is complaining of hearing loss. Ultimately patient does need a ENT evaluation. His information was placed with case management and they will try to get patient set up with our new ENT physician Dr. Iniguez. I also asked case management to help set him up with financial underwriter paperwork so he may follow-up with a primary care provider. I explained to patient how there is little I am going to be able to help him with today regarding his back pain for four years-especially from an emergency setting. We discussed conservatively treatments with ice/heat, stretching, and back strengthening exercises. Discharge Plan Discharge Patient Disposition: Home Clinical Impression: Otalgia of left ear Chronic lower back pain Qualifiers: Back pain laterality: left Sciatica presence: without sciatica Qualified Code(s): M54.5 - Low back pain Condition: Stable Prescriptions: No Action Zyrtec 10 mg Tablet 10 mg PO DAILY PRN (Reason: Allergy Symptoms) RF: 0 Discharge Orders: Discharge ED (Routine); Ordered 11/15/20 Ordered By: Cheyanne Randhawa Coding Level of Care Code ED Learning Design Specialist for Bennett Cony
--- NOTE | 2020-11-16 11:33 | DCPLANNER ---
retail analytics manager had message to speak with patient about getting established with a primary care physician, and a referral to ENT. retail analytics manager has referred patient to the ENT in the past, and he did not want appointment due to no insurance in the past. retail analytics manager called patient, offered to send him the financial reporting manager applications for him to fill out and turn back in. Patient stated that he would fill out and turn in, patient stated that he would call and make a follow up appointment with both ENT and primary care when he finds out where he is at on the slide. retail analytics manager mailed both of the financial reporting manager applications to fill out.
== END 2020-11-15 17:00 | disposition home or self-care (01) ==
PROVIDERS: Emergency Provider Physician Assistant
DX: H92.02 Otalgia, left ear (principal); G89.29 Other chronic pain; M54.5 Low back pain; F17.210 Nicotine dependence, cigarettes, uncomplicated
CPT/HCPCS: 12345; 99281

== ENCOUNTER 2022-01-23 15:55 | Emergency (ER) | payer SELFPAY ==
[2022-01-23 16:01] VITALS: BP 158/97; PULSE 100; RESP 18; TEMP 36.8; O2SAT 100; BMI 25.1
--- NOTE | 2022-01-23 16:29 | W.ED.SKABFB ---
HPI - Skin/Abscess/Foreign Bdy General: Chief complaint: Animal Bite Stated complaint: Bite on Rt leg Time Seen by Provider: 01/23/22 16:17 Source: patient Mode of arrival: ambulatory Limitations: no limitations History of Present Illness: Patient is a 36-year-old male who presents to ED today with complaints of a possible spider bite to his right lateral upper thigh that he noticed this morning. Patient states bite was not there yesterday and thinks he may have gotten bitten in the middle of the night. Patient states lesion is burning. He states he got a very small amount of clear drainage out of the center. Denies systemic complaints. MD complaint: insect bite/sting Onset (ago): hour(s) Tetanus up to date: yes Location: RLE Quality: burning Pain Consistency: constant Relieving factors: none Exacerbating factors: none Associated symptoms: Reports no associated symptoms; Deny chills, fever(s), nausea or vomiting Treatments prior to arrival: none Review of Systems Const: Denies: fever(s), chills, body aches, fatigue or malaise Card: Denies: chest pain Resp: Denies: dyspnea GI: Denies: abdominal pain, nausea or vomiting Musc: Denies: neck pain, back pain, extremity swelling or joint swelling Skin/Breast: Reports: new lesions Neuro: Denies: headache(s) PFSH ED PFSH: Medical History Anaphylaxis Family History Other CAD (coronary artery disease) Social History Smoking and tobacco status: current every day smoker Alcohol intake: never Physical Exam Const: COMMON NORMALS: no acute distress, average body habitus, patient oriented x3, no limitations, healthy appearing, alert and well nourished Resp: COMMON NORMALS: normal respiratory effort and clear to auscultation bilaterally AUSCULTATION: clear to auscultation bilaterally Cardio: COMMON NORMALS: regular rate and regular rhythm RATE: regular rate RHYTHM: regular rhythm Extremity: EXTREMITY IMAGE (FRONT): 1. pt has a non raised slightly indurated erythematous area to R lateral thigh measuring approximately 3-3.5cm; there is no drainage present; erythema marked with skin marker; no hemorrhagic center at this time but lesion does look suspicious for spider bite Neuro: COMMON NORMALS: patient oriented x3, moves all extremities, no focal motor deficits, no sensory deficits noted and gait normal SENSORIUM/ORIENTATION: Yes alert Skin: NARRATIVE SKIN EXAM: Please see extremity for pertinent skin findings Course Vital Signs: Vital signs: Vital Signs Temperature 98.3 F 01/23/22 16:01 Pulse Rate 100 01/23/22 16:01 Respiratory Rate 18 01/23/22 16:01 Blood Pressure 158/97 01/23/22 16:01 Pulse Oximetry 100 01/23/22 16:01 MDM - Skin/Abscess/Foreign Bdy Medicial Decision Making Lesion could certainly be consistent with a brown recluse bite although he does mention girlfriend also had a similar lesion which I would think would make spider bite less likely and a developing staph abscess more of a possibility. There is nothing amendable to I&D at this time. Patient will be placed on Bactrim and recommend close observation at home. Strict return to ED precautions given. Discharge Plan Discharge Patient Disposition: Home Clinical Impression: Brown recluse spider bite Qualifiers: Encounter type: initial encounter Injury intent: accidental or unintentional Qualified Code(s): T63.331A - Toxic effect of venom of brown recluse spider, accidental (unintentional), initial encounter Condition: Stable Prescriptions: New Bactrim DS 800-160 mg tablet 1 tab PO BID 7 Days Qty: 14 0RF No Action Zyrtec 10 mg Tablet 10 mg PO DAILY PRN (Reason: Allergy Symptoms) 0RF Discharge Orders: Discharge ED (Routine); Ordered 01/23/22 Ordered By: Cheyanne Randhawa Patient Instructions: Brown Recluse Spider Bite (ED) Coding Level of Care Code ED Hospital Account Manager for 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
== END 2022-01-23 16:36 | disposition home or self-care (01) ==
PROVIDERS: Emergency Provider Physician Assistant
DX: T63.331A Toxic effect of venom of brown recluse spider, accidental (unintentional), initial encounter (principal); F17.210 Nicotine dependence, cigarettes, uncomplicated
CPT/HCPCS: 99281

== ENCOUNTER 2023-05-18 11:00 | Emergency (ER) | payer SELFPAY ==
[2023-05-18 11:19] VITALS: BP 151/92; PULSE 91; RESP 16; TEMP 36.8; O2SAT 100; BMI 25.7
--- NOTE | 2023-05-18 12:00 | XR_ITS ---
WS: [id number] Left hand, 3 views, 05/18/2023 Clinical Data: PAIN POST FALL Comparison: None. Findings: No fractures or dislocations are seen. The soft tissues are unremarkable. The joint spaces are normal XR/XR hand LT min 3V* [id number] Impression: Negative left hand.
--- NOTE | 2023-05-18 12:00 | XR_ITS ---
WS: [id number] Left wrist, 3 views, 05/18/2023 Clinical Data: PAIN POST FALL Comparison: None. Findings: No fractures or dislocations are seen. The carpal bones are intact. There is no soft tissue swelling. The distal radius and ulna are not remarkable. XR/XR wrist LT 2V [id number] Impression: Negative left wrist.
--- NOTE | 2023-05-18 12:33 | W.ED.EXTPRO ---
HPI - Extremity Problem General: Chief complaint: Extremity Injury, Upper Stated complaint: L hand injury Time Seen by Provider: 05/18/23 12:00 History of Present Illness: 37-year-old male presents emergency room with left hand and wrist swelling and pain since last night after falling while at work. She described the pain as throbbing sensation with severity of 7 out of 10. Patient has any other injury no head injury no loss of consciousness. No elbow pain or shoulder pain. Review of Systems General: Reports: 10 or more systems reviewed and unremarkable except in HPI and below Musc: Reports: extremity pain, extremity swelling and joint swelling; Denies: joint redness or joint warmth PFSH ED PFSH: Medical History Anaphylaxis Family History Other CAD (coronary artery disease) Social History Smoking and tobacco status: current every day smoker Alcohol intake: never Substance/Drug Use: current Substance/Drug use frequency: few times a week Physical Exam Const: COMMON NORMALS: no acute distress, average body habitus, patient oriented x3, no limitations, healthy appearing, alert and well nourished Eye: COMMON NORMALS: Equal, round and reactive pupils present, EOMs intact bilaterally, conjunctivae normal, no scleral icterus, no papilledema, normal visual bardales by confrontation and fundi normal bilaterally CONJUNCTIVA: Yes conjunctivae normal PUPIL: Yes Equal, round and reactive pupils present DIRECT OPHTHALMOSCOPY: Yes no papilledema and Yes fundi normal bilaterally Neck/C-Spine: COMMON NORMALS: no JVD Chest: COMMONS NORMALS: normal inspection of the chest, normal palpation of entire chest wall, normal inspection of the breasts and normal palpation of the breasts Breast/axilla inspection: Yes normal inspection of the breasts BREAST/AXILLA PALPATION: Yes normal palpation of the breasts Resp: COMMON NORMALS: normal respiratory effort, No retractions, No use of accessory muscles, clear to auscultation bilaterally and percussion normal AUSCULTATION: clear to auscultation bilaterally PERCUSSION: percussion normal Cardio: COMMON NORMALS: no JVD, regular rate, regular rhythm, S1 normal heart sound present, S2 normal heart sound present, No gallops present (Cardio), No clicks present (Cardio), No murmurs present (Cardio), No rub (Cardio) and Peripheral pulses 2+ throughout RATE: regular rate RHYTHM: regular rhythm HEART SOUNDS: S1 normal heart sound present and S2 normal heart sound present PERIPHERAL PULSES: Peripheral pulses 2+ throughout Extremity: NARRATIVE EXTREMITY EXAM: Left hand with diffuse swelling and tenderness mostly dorsal aspect. Visible laceration or open wound. This with limited range of motion due to pain and some swelling. Patient with normal sensation and brisk capillary refill at the tip of the fingers. LEFT UPPER EXTREMITY: Yes wrist Left wrist: Yes palpation (Tenderness diffuse tenderness) Neuro: COMMON NORMALS: patient oriented x3 SENSORIUM/ORIENTATION: Yes alert Course Vital Signs: Vital signs: Vital Signs Temperature 98.3 F 05/18/23 11:19 Pulse Rate 91 05/18/23 11:19 Respiratory Rate 16 05/18/23 11:19 Blood Pressure 151/92 05/18/23 11:19 Pulse Oximetry 100 05/18/23 11:19 Oxygen Delivery Me thod Room Air 05/18/23 11:19 MDM - Extremity (Nontraumatic) Medical Decision Making She was made comfortable emergency room. Patient was given pain medication x-ray was done I discussed the x-ray finding with the patient. Abel the need to follow-up with primary physician for further evaluation and treatment. Differential Diagnosis Likely gout (Sprain, strain, contusion, fracture or dislocation.) Lab Data Radiology Impressions Hand X-Ray 05/18/23 12:00 Impression: Negative left hand. Wrist X-Ray 05/18/23 12:00 Impression: Negative left wrist. Discharge Plan Discharge Patient Disposition: Home Clinical Impression: Sprain and strain of wrist, Contusion of hand Condition: Stable Prescriptions: New naproxen 500 mg tablet 500 mg PO BID PRN (Reason: pain) Qty: 20 0RF No Action Zyrtec 10 mg Tablet 10 mg PO DAILY PRN (Reason: Allergy Symptoms) Discharge Orders: Discharge ED (Routine); Ordered 05/18/23 Ordered By: Stanislav Wolff Discharge Diet: Advance as tolerated Discharge Activity: Resume usual activity Patient Instructions: Opioid Safety, Pain Management Coding Level of Care Code ED Communications Supervisor for 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
[2023-05-18 12:35] VITALS: BP 156/103; PULSE 85; RESP 18; O2SAT 100
[2023-05-18 12:37] VITALS: RESP 18; O2SAT 100
[2023-05-18] MEDS: oxyCODONE-APAP 5-325 mg Tablet 1 TAB PO (12:37)
== END 2023-05-18 12:53 | disposition home or self-care (01) ==
PROVIDERS: Emergency Provider Family Medicine
DX: S63.502A Unspecified sprain of left wrist, initial encounter (principal); S66.912A Strain of unspecified muscle, fascia and tendon at wrist and hand level, left hand, initial encounter; S60.222A Contusion of left hand, initial encounter; W19.XXXA Unspecified fall, initial encounter; Y99.0 Civilian activity done for income or pay
CPT/HCPCS: 73100; 73130; 99283

== ENCOUNTER 2023-06-27 23:07 | Emergency (ER) | payer SELFPAY ==
[2023-06-27 23:15] VITALS: BP 156/91; PULSE 82; RESP 18; TEMP 37.3; O2SAT 97; BMI 25.1
--- NOTE | 2023-06-28 01:40 | ED_ITS ---
HPI - Dental/Oral General: Chief complaint: Dental/Oral Stated complaint: Face swelling Time Seen by Provider: 06/28/23 01:26 History of Present Illness: 37-year-old male patient comes in today with left upper jaw swelling and pain. Patient had dental extractions approximately 2 weeks ago and has felt a piece of to start in the push out from his gumline. Patient since then has had increased pain and discomfort and has come in due to swelling to the face. Patient appears in mild to moderate pain. Patient has some mild facial swelling noted on bedside exam. Review of Systems General: Reports: 10 or more systems reviewed and unremarkable except in HPI and below ENMT: Reports: mouth pain and other (Facial swelling) PFSH ED PFSH: Medical History Anaphylaxis Family History Other CAD (coronary artery disease) Social History Smoking and tobacco status: current every day smoker Alcohol intake: never Substance/Drug Use: current Substance/Drug use frequency: few times a week Physical Exam Const: COMMON NORMALS: alert HENMT: MOUTH: other (Swelling of the gingiva in the left upper jaw) TEETH & GINGIVA: Yes edentulous Neck/C-Spine: COMMON NORMALS: full ROM Resp: COMMON NORMALS: normal respiratory effort Cardio: COMMON NORMALS: regular rate RATE: regular rate Extremity: COMMON NORMALS: normal to inspection Neuro: SENSORIUM/ORIENTATION: Yes alert Skin: COMMON NORMALS: turgor normal GENERAL SKIN EXAM: turgor normal Course Vital Signs: Vital signs: Vital Signs Temperature 99.1 F 06/27/23 23:15 Pulse Rate 82 06/27/23 23:15 Respiratory Rate 18 06/27/23 23:15 Blood Pressure 156/91 06/27/23 23:15 Pulse Oximetry 97 06/27/23 23:15 Oxygen Delivery Me thod Room Air 06/27/23 23:15 [facility] - Dental/Oral Medical Decision Making 37-year-old male patient comes in today with complaints of left upper jaw pain. On exam patient has some mild swelling to the left upper jaw with a tooth fragment noted within the gingiva. Swelling and redness is noted around this fragment. Differential diagnosis includes but not limited to dental abscess, foreign body, dental fragment. Patient be started on amoxicillin with potassium clavulanate 1 tablet twice a day for next 7 days. Patient was instructed to follow-up with oral surgeon for evaluation and further treatment. Patient and spouse both reported understanding. Patient was given a short prescription for hydrocodone to assist with pain. Discharge Plan Discharge Patient Disposition: Home Clinical Impression: Dental abscess Condition: Stable Prescriptions: New amoxicillin-pot clavulanate 875-125 mg tablet 1 tab PO BID Qty: 14 0RF hydrocodone-acetaminophen 5-325 mg tablet 1 tab PO Q8H PRN (Reason: pain (scale score 7-10)) Qty: 7 0RF No Action Zyrtec 10 mg Tablet 10 mg PO DAILY PRN (Reason: Allergy Symptoms) naproxen 500 mg tablet 500 mg PO BID PRN (Reason: pain) Qty: 20 0RF Discharge Orders: Discharge ED (Routine); Ordered 06/28/23 Ordered By: Geraldo Juarez Discharge Diet: Usual diet Discharge Activity: Increase activity as tolerated Patient Instructions: Dental Abscess (ED) Activity Restrictions/Additional Instructions: Take antibiotic as directed. Elevate head of bed in order to help prevent swelling especially while sleeping. Drink plenty of water and fluids. Follow- up with Dentist for definitive care. Return to ED for new concerns. Coding Level of Care Code ED Wet End Supervisor for 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
[2023-06-28] MEDS: HYDROcodone-acetaminophen 7.5-325 mg Tablet 1 TAB PO (02:25)
[2023-06-28] MEDS: dexamethasone 4 mg Tablet 10 MG PO (02:26)
[2023-06-28] MEDS: amoxicillin-clav 875-125 mg Tablet 1 TAB PO (02:26)
[2023-06-28 02:27] VITALS: BP 135/96; PULSE 77; RESP 16; O2SAT 97
== END 2023-06-28 02:32 | disposition home or self-care (01) ==
PROVIDERS: Emergency Provider Nurse Practitioner Family
DX: K04.7 Periapical abscess without sinus (principal); F17.210 Nicotine dependence, cigarettes, uncomplicated
CPT/HCPCS: 99283; J8540

== ENCOUNTER 2023-09-02 22:05 | Emergency (ER) | payer SELFPAY ==
[2023-09-02 22:15] VITALS: BP 130/85; PULSE 115; RESP 18; TEMP 38.4; O2SAT 99; BMI 24.4
--- NOTE | 2023-09-02 22:27 | W.ED.URI ---
HPI - URI/Sore Throat General: Chief Complaint: Upper Respiratory Infection Stated Complaint: Flu Symp\Headache Time Seen by Provider: 09/02/23 22:22 History of Present Illness: 37-year-old male patient comes in today with body aches and fever starting yesterday. Patient appears nontoxic. Patient appears mildly unwell. Patient appears in mild to moderate pain. Patient reports headache. Associated symptoms: Reports fever(s) and headache(s); Deny chest pain, diarrhea, nausea or vomiting Review of Systems General: Reports: 10 or more systems reviewed and unremarkable except in HPI and below Const: Reports: fever(s) Card: Denies: chest pain Resp: Denies: dyspnea GI: Denies: nausea, vomiting, diarrhea or constipation : Denies: difficulty urinating Musc: Denies: neck pain or back pain Skin/Breast: Denies: rash Neuro: Reports: headache(s) PFS ED PFSH: Medical History Anaphylaxis Family History Other CAD (coronary artery disease) Social History Smoking and tobacco/nicotine status: current every day tobacco/nicotine user Alcohol intake: never Substance/Drug Use: current Substance/Drug use frequency: few times a week Physical Exam Const: COMMON NORMALS: alert HENMT: HEAD & SCALP: normal to inspection THROAT: posterior oropharynx normal Neck/C-Spine: COMMON NORMALS: full ROM and no meningeal signs Chest: COMMONS NORMALS: normal inspection of the chest Resp: COMMON NORMALS: normal respiratory effort and clear to auscultation bilaterally AUSCULTATION: clear to auscultation bilaterally Cardio: COMMON NORMALS: regular rate and regular rhythm RATE: regular rate RHYTHM: regular rhythm GI: COMMON NORMALS: Soft to palpation and non-tender PALPATION: Yes Soft to palpation Back/Pelvis: COMMON NORMALS: thoracic and lumbar spine normal to inspection Extremity: COMMON NORMALS: full ROM Neuro: SENSORIUM/ORIENTATION: Yes alert MENINGEAL SIGNS: Yes no meningeal signs Skin: COMMON NORMALS: turgor normal GENERAL SKIN EXAM: turgor normal Course Vital Signs: Vital signs: Vital Signs Temperature 101.2 F H 09/02/23 22:15 Pulse Rate 115 H 09/02/23 22:15 Respiratory Rate 18 09/02/23 22:15 Blood Pressure 130/85 09/02/23 22:15 Pulse Oximetry 99 09/02/23 22:15 Oxygen Delivery Me thod Room Air 09/02/23 22:15 MDM - URI/Sore Throat Medical Decision Making Patient comes in today with febrile illness starting yesterday. Patient has been around a friend and her son that have both been sick with upper respiratory infection. Patient reports headache, body ache, and fever. Patient appears unwell but not toxic. Patient denies any sores or lesions. Abdomen soft nontender. Lungs clear to auscultation. Vital signs are normal except for a temperature of 101.2, and a pulse of 115. Differential diagnosis includes viral syndrome. Influenza, COVID. Patient is positive for influenza type B. Patient was instructed on supportive care. Patient reported understanding agreed to plan. Follow-up as needed. Lab Data Laboratory Results Influenza Type A Ag negative (Negative) 09/02/23 22:33 Influenza Type B Ag positive (Negative) H 09/02/23 22:33 SARS-CoV-2 Ag (Rapid) negative (Negative) 09/02/23 22:33 No radiology studies performed this visit Discharge Plan Discharge Patient Disposition: Home Clinical Impression: Influenza Condition: Stable Prescriptions: No Action Zyrtec 10 mg Tablet 10 mg PO DAILY PRN (Reason: Allergy Symptoms) amoxicillin-pot clavulanate 875-125 mg tablet 1 tab PO BID Qty: 14 0RF hydrocodone-acetaminophen 5-325 mg tablet 1 tab PO Q8H PRN (Reason: pain (scale score 7-10)) Qty: 7 0RF naproxen 500 mg tablet 500 mg PO BID PRN (Reason: pain) Qty: 20 0RF Discharge Orders: Discharge ED (Routine); Ordered 09/02/23 Ordered By: Geraldo Juarez Discharge Diet: Usual diet Discharge Activity: Increase activity as tolerated Patient Instructions: Influenza (ED) Activity Restrictions/Additional Instructions: Drink plenty of water and fluids. Use acetaminophen and ibuprofen for pain and fever. Is important to stay well-hydrated. Follow-up with primary care for further instructions. Return to ED for new concerns. Coding Level of Care Code ED Fixed Income Portfolio Manager for 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
[2023-09-02] MEDS: ibuprofen 800 mg tablet PO (22:32)
[2023-09-02 22:53] LABS: Influenza A by IFA negative (Negative); Influenza B by IFA positive (Negative)
[2023-09-02 23:00] LABS: SARS Covid-2 Antigen negative (Negative)
== END 2023-09-02 23:29 | disposition home or self-care (01) ==
PROVIDERS: Emergency Provider Nurse Practitioner Family
DX: J11.1 Influenza due to unidentified influenza virus with other respiratory manifestations (principal); Z11.52 Encounter for screening for COVID-19; Z72.0 Tobacco use
CPT/HCPCS: 87426; 87804; 99283

== ENCOUNTER 2023-09-10 06:22 | Emergency (ER) | payer SELFPAY ==
[2023-09-10 06:35] VITALS: BP 121/82; PULSE 104; RESP 18; TEMP 37.1; O2SAT 96; BMI 25.1
[2023-09-10 06:39] VITALS: BP 141/94; O2SAT 94
--- NOTE | 2023-09-10 06:41 | ED_ITS ---
HPI - URI/Sore Throat General: Chief Complaint: Upper Respiratory Infection Stated Complaint: ear ache, cough Time Seen by Provider: 09/10/23 06:25 Source: patient Mode of arrival: ambulatory History of Present Illness: 57-year-old male presents emergency room complaining of cough sore throat and right ear pain. Tested positive for influenza B approximately 1 week ago. MD elicited complaint: sore throat and other (Right ear pain) Associated symptoms: Deny abdominal pain, chills, chest pain or fever(s) Review of Systems Const: Denies: fever(s) or chills Card: Denies: chest pain Resp: Denies: dyspnea GI: Denies: abdominal pain : Denies: dysuria, urinary frequency or urinary urgency Musc: Denies: neck pain or back pain Skin/Breast: Denies: rash PFSH ED PFSH: Medical History Anaphylaxis Family History Other CAD (coronary artery disease) Social History Smoking and tobacco/nicotine status: current every day tobacco/nicotine user Alcohol intake: never Substance/Drug Use: current Substance/Drug use frequency: few times a week Physical Exam Const: GENERAL APPEARANCE: cooperative and comfortable ORIENTATIO N/CONSCIOUSNESS: Yes awake, Yes oriented to person, Yes oriented to place and Yes oriented to time HENMT: COMMON NORMALS: normocephalic, atraumatic and hearing grossly normal bilaterally HEAD & SCALP: normocephalic and atraumatic OTHER: Left TM red and inflamed bulging. No perforation no drainage at this time Resp: COMMON NORMALS: normal respiratory effort, No retractions and No use of accessory muscles AUSCULTATION: rhonchi and wheezes Cardio: COMMON NORMALS: regular rate, regular rhythm and No murmurs present (C ardio) RATE: regular rate RHYTHM: regular rhythm GI: COMMON NORMALS: Soft to palpation and No hepatosplenomegaly present AUSCULTATION: Yes normoactive bowel sounds PALPATION: Yes Soft to palpation, No Tenderness to palpation present (GI), No Guarding due to palpation present (GI) and Yes No hepatosplenomegaly present Extremity: COMMON NORMALS: normal to inspection, capillary refill normal, no clubbing, cyanosis or edema, no calf tenderness and no pedal edema Neuro: SENSORIUM/ORIENTATION: Yes oriented to person, Yes oriented to place and Yes oriented to time Skin: COMMON NORMALS: no rashes or lesions noted GENERAL SKIN EXAM: no rashes or lesions noted Course Vital Signs: Vital signs: Vital Signs Temperature 98.7 F 09/10/23 06:35 Pulse Rate 104 H 09/10/23 06:35 Respiratory Rate 18 09/10/23 06:35 Blood Pressure 141/94 09/10/23 06:39 Pulse Oximetry 94 09/10/23 06:39 Oxygen Delivery Me thod Room Air 09/10/23 06:39 MDM - URI/Sore Throat Medical Decision Making Slight early infiltrate at the left base coarse breath sounds in that same area. We will treat with Augmentin 875 twice daily for 7 days follow-up with primary care if not improving or worsens. Also use albuterol as needed Medical Records I reviewed the patient's medical records. Lab Data I reviewed the patient's lab results. XR interpretation done by ED provider, pending radiology final review Discharge Plan Discharge Patient Disposition: Home Clinical Impression: Otitis media, Pneumonia Condition: Stable Prescriptions: New amoxicillin-pot clavulanate 875-125 mg tablet 1 tab PO BID Qty: 14 0RF albuterol sulfate 90 mcg/actuation HFA aerosol inhaler 2 inh INHALATION Q4H PRN (Reason: shortness of breath or wheezing) Qty: 18 0RF Discharge Orders: Discharge ED (Routine); Ordered 09/10/23 Ordered By: Chilo Bella Discharge Diet: Usual diet Discharge Activity: Increase activity as tolerated Patient Instructions: Otitis Media - Adult, Pneumonia (ED), Opioid Safety, Pain Management Activity Restrictions/Additional Instructions: Thank you for choosing [facility] for your healthcare needs today. Please realize this is an emergency room and that we are providing you with a medical screening exam and this may not be complete and all inclusive of all the testing and or work up that you may need to determine your ailment or severity of your illness. It is very important that you follow up as instructed or that you return to the Emergency Department should you have concerns or if your condition changes or worsens in any way. You are seen today for left ear pain and cough. On chest x-ray there is signs of early pneumonia on your ear exam there is signs of an ear infection. Recommend start oral antibiotic 1 pill twice a day for 7 days follow-up with your primary care doctor if not improving. You can use albuterol as needed to help relieve cough and wheezing. Coding Level of Care Code ED Marketing Services Rep for 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
--- NOTE | 2023-09-10 06:49 | XRR_ITS ---
PROCEDURE INFORMATION: Exam: XR Chest Exam date and time: 09/10/2023 7:19 AM Age: 37 years old Clinical indication: Cough and dyspnea; Additional info: Dyspnea/cough TECHNIQUE: Imaging protocol: Radiologic exam of the chest. Views: 1 view. COMPARISON: CR XR chest 1V portable [id number] 09/15/2020 7:24 AM FINDINGS: Lungs: Mild patchy bibasilar reticulonodular opacification with more focal nodular opacity in the medial right lung base measuring approximately 2.6 x 2.2 cm. Pleural spaces: No pleural effusion or pneumothorax. Heart/Mediastinum: Unremarkable. No cardiomegaly. Bones/joints: Unremarkable. XR/XR chest 1V portable [id number] IMPRESSION: Mild bibasilar lung findings may be infectious. Findings could also be seen in the setting of aspiration. Given more focal nodular medial right lung base opacity, recommend follow-up imaging to resolution.
== END 2023-09-10 08:07 | disposition home or self-care (01) ==
PROVIDERS: Emergency Provider Family Medicine
DX: H66.91 Otitis media, unspecified, right ear (principal); J18.9 Pneumonia, unspecified organism; Z72.0 Tobacco use
CPT/HCPCS: 71045; 99283

== ENCOUNTER 2023-12-25 14:59 | Emergency (ER) | payer SELFPAY ==
[2023-12-25 15:01] VITALS: BP 160/90; PULSE 95; RESP 14; TEMP 36.9; O2SAT 99
--- NOTE | 2023-12-25 15:16 | ED_ITS ---
HPI - Wound/Laceration General: Chief Complaint: Wound/Laceration Stated Complaint: left leg pain Time Seen by Provider: 12/25/23 15:10 Source: patient Mode of arrival: ambulatory Limitations: no limitations History of Present Illness: Patient is a 38-year-old male who presents to ED today for complaints of multiple skin wounds that he has noticed over the past few days. He has one wound to the left thigh that he feels like is draining purulent material. He has other scabbed lesions throughout his hands and forearms and one to his buttock. He has no systemic symptoms. He denies history of staph or MRSA. He does have a history of drug use. Onset (ago): day(s) Place: home Patient tetanus UTD: Yes Associated symptoms: Reports no associated symptoms; Denies chills or fever(s) Review of Systems Const: Denies: fever(s), chills, body aches, fatigue or malaise Card: Denies: chest pain Resp: Denies: dyspnea Skin/Breast: Reports: other (multiple scabbed lesions) [facility] ED PFSH: Medical History Anaphylaxis Family History Other CAD (coronary artery disease) Social History Smoking and tobacco/nicotine status: current every day tobacco/nicotine user Alcohol intake: never Substance/Drug Use: current Substance/Drug use frequency: few times a week Physical Exam Const: COMMON NORMALS: no acute distress, patient oriented x3, no limitations, alert and well nourished GENERAL APPEARANCE: cooperative and appears older than stated age ORIENTATION/CONSCIOUSNESS: Yes awake, Yes oriented to person, Yes oriented to place and Yes oriented to time Lymph: LYMPHATIC: no lymphadenopathy noted Resp: COMMON NORMALS: normal respiratory effort Cardio: COMMON NORMALS: regular rate and regular rhythm RATE: regular rate RHYTHM: regular rhythm Neuro: COMMON NORMALS: patient oriented x3 SENSORIUM/ORIENTATION: Yes alert, Yes oriented to person, Yes oriented to place and Yes oriented to time Skin: NARRATIVE SKIN EXAM: multiple picked/scabbed lesions to legs/forearms/hands with some early abscess formations; most likely these are staph abscesses; none require incision and drainage; none with surrounding cellulitis or streaking; no drainage could be expressed from any of them for culture Course Vital Signs: Vital signs: Vital Signs Temperature 98.5 F 12/25/23 15:01 Pulse Rate 95 12/25/23 15:01 Respiratory Rate 14 12/25/23 15:01 Blood Pressure 160/90 12/25/23 15:01 Pulse Oximetry 99 12/25/23 15:01 Oxygen Delivery Me thod Room Air 12/25/23 15:01 MDM - Wound/Laceration Medical Decision Making Most likely these are staph abscesses. Will cover for MRSA. Recommend follow- up with primary care in a week or so if lesions do not begin to improve. Return ED precautions given. Medical Records I reviewed the patient's medical records. No radiology studies performed this visit Discharge Plan Discharge Patient Disposition: Home Clinical Impression: Abscess of multiple sites Condition: Stable Prescriptions: New Bactrim DS 800-160 mg tablet 1 tab PO BID 7 Days Qty: 14 0RF mupirocin 2 % ointment 1 applic topical BID Qty: 15 0RF Discontinued amoxicillin-pot clavulanate 875-125 mg tablet 1 tab PO BID Qty: 14 0RF No Action albuterol sulfate 90 mcg/actuation HFA aerosol inhaler 2 inh INHALATION Q4H PRN (Reason: shortness of breath or wheezing) Qty: 18 0RF Discharge Orders: Discharge ED (Routine); Ordered 12/25/23 Ordered By: Cheyanne Randhawa Patient Instructions: Skin Abscess, Skin Abscess - Antibiotics, Staphylococcus Aureus Infection Activity Restrictions/Additional Instructions: As we discussed please avoid picking at lesions. You may apply the topical antibiotic twice daily to lesions. Begin your oral antibiotics today as well. As we discussed you need to follow-up with primary care in a week or so if symptoms do not seem to be improving. Coding Level of Care Code ED Medication Technician for 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
== END 2023-12-25 15:43 | disposition home or self-care (01) ==
PROVIDERS: Emergency Provider Physician Assistant
DX: L02.416 Cutaneous abscess of left lower limb (principal); L02.415 Cutaneous abscess of right lower limb; L02.414 Cutaneous abscess of left upper limb; L02.413 Cutaneous abscess of right upper limb; L02.512 Cutaneous abscess of left hand; L02.511 Cutaneous abscess of right hand; Z72.0 Tobacco use
CPT/HCPCS: 99283

== ENCOUNTER 2024-03-20 18:09 | Emergency (ER) | payer SELFPAY ==
--- NOTE | 2024-03-20 18:11 | ECG_ITS ---
[facility] Test Date: 2024-03-20 Pat Name: Walter Andrade Department: Room: Gender: Male Dye Beck Reel Operator: : 1985 Requested By: Luisito Rae Order Number: [id number] Yazmin MD: Martha Tubbs M.D. Measurements Intervals [place] Rate: 99 P: 41 WA: 147 QRS: 64 QRSD: 96 T: 52 QT: 353 QTc: 453 Interpretive Statements SINUS RHYTHM WITH OCCASIONAL VENTRICULAR PREMATURE COMPLEXES Compared to ECG 09/15/2020 07:22:46 Ventricular premature complex(es) now present Electronically Signed On 03-21-2024 0:08:56 CDT by Martha Tubbs M.D. [id number]
--- NOTE | 2024-03-20 18:11 | XRR_ITS ---
PROCEDURE INFORMATION: Exam: XR Chest Exam date and time: 03/20/2024 7:01 PM Age: 38 years old Clinical indication: Chest wall pain; Additional info: Cp TECHNIQUE: Imaging protocol: Radiologic exam of the chest. Views: 1 view. COMPARISON: CR XR chest 1V portable [id number] 09/10/2023 7:19 AM FINDINGS: Lungs: The lungs are clear. No pulmonary consolidation. Pleural spaces: No pleural effusion or pneumothorax. Heart/Mediastinum: Patient is rotated. The cardiomediastinal silhouette is suboptimally evaluated. Bones/joints: No acute osseous abnormalities are seen. XR/XR chest 1V portable [id number] IMPRESSION: No acute cardiopulmonary disease.
--- NOTE | 2024-03-20 18:12 | ED_ITS ---
HPI - Chest Pain General: Chief Complaint: Chest Pain Stated Complaint: CP Time Seen by Provider: 03/20/24 18:11 Source: patient, EMS and police Mode of arrival: EMS Limitations: no limitations History of Present Illness: 38-year-old male is here with police pat ient was being arrested he did ran in was tased twice by the police officers. He is now complaining of some chest pain he does have a history of methamphetamine abuse he states that he is got sharp pains in the center of his chest he is in no distress here and denies any worsening proving factors Associated symptoms: Deny abdominal pain, dyspnea, fever(s), nausea or vomiting Review of Systems Const: Denies: fever(s), chills, body aches or change in appetite ENMT: Denies: throat pain or dental pain Card: Reports: chest pain Resp: Denies: dyspnea GI: Denies: abdominal pain, nausea, vomiting or diarrhea Musc: Denies: neck pain or back pain Skin/Breast: Denies: rash Neuro: Denies: headache(s) PFSH ED PFSH: Medical History Anaphylaxis Family History Other CAD (coronary artery disease) Social History Smoking and tobacco/nicotine status: current every day tobacco/nicotine user Alcohol intake: never Substance/Drug Use: current Substance/Drug use frequency: few times a week Physical Exam Const: COMMON NORMALS: no acute distress, patient oriented x3 and healthy appearing HENMT: COMMON NORMALS: normocephalic and atraumatic HEAD & SCALP: normocephalic and atraumatic Eye: COMMON NORMALS: conjunctivae normal CONJUNCTIVA: Yes conjunctivae normal Neck/C-Spine: COMMON NORMALS: full ROM and supple Chest: COMMONS NORMALS: normal inspection of the chest and normal palpation of entire chest wall Resp: COMMON NORMALS: normal respiratory effort, No retractions, No use of accessory muscles and clear to auscultation bilaterally AUSCULTATION: clear to auscultation bilaterally Cardio: COMMON NORMALS: regular rate, regular rhythm and No murmurs present (Cardio) RATE: regular rate RHYTHM: regular rhythm Extremity: COMMON NORMALS: normal to inspection and full ROM Neuro: COMMON NORMALS: patient oriented x3, moves all extremities and no focal motor deficits Psych: COMMON NORMALS: mental status grossly normal, Normal thought process present and cooperative THOUGHT PROCESS: Normal thought process present Skin: COMMON NORMALS: no rashes or lesions noted and no wounds GENERAL SKIN EXAM: no rashes or lesions noted Course Vital Signs: Vital signs: Vital Signs Temperature 98.4 F 03/20/24 18:16 Pulse Rate 103 H 03/20/24 18:16 Respiratory Rate 22 H 03/20/24 18:16 Blood Pressure 146/99 03/20/24 18:16 Pulse Oximetry 95 03/20/24 18:16 Oxygen Delivery Me thod Room Air 03/20/24 18:16 MDM - Chest Pain Medical Decision Making Patient presents here with chest pain after being tased he is well-appearing here EKG x-ray is normal he stable for discharge he is fit for confinement discharge into police custody Medical Records I reviewed the patient's medical records. Lab Data I reviewed the patient's lab results. Radiology Impressions Chest X-Ray 03/20/24 18:11 IMPRESSION: No acute cardiopulmonary disease. XR interpretation done by ED provider, pending radiology final review EKG Data EKG 1: I personally reviewed and interpreted this EKG as follows: EKG interpretation date: 03/20/24 EKG interpretation time: 18:15 Interpretation: nsr hr [address] or t wave abnormalities qrs 96 qtc 409 Discharge Plan Discharge Patient Disposition: Home Clinical Impression: Chest pain Condition: Stable Prescriptions: No Action albuterol sulfate 90 mcg/actuation HFA aerosol inhaler 2 inh INHALATION Q4H PRN (Reason: shortness of breath or wheezing) Qty: 18 0RF mupirocin 2 % ointment 1 applic topical BID Qty: 15 0RF Discharge Orders: Discharge ED (Routine); Ordered 03/20/24 Ordered By: Luisito Rae Discharge Diet: Advance as tolerated Discharge Activity: Resume usual activity Patient Instructions: Chest Pain (ED) Activity Restrictions/Additional Instructions: Patient is medically cleared and fit for confinement Coding Level of Care Code ED Industrial 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
[2024-03-20 18:16] VITALS: BP 146/99; PULSE 103; RESP 22; TEMP 36.9; O2SAT 95
[2024-03-20 19:25] VITALS: BP 162/107; RESP 18; O2SAT 96
== END 2024-03-20 19:21 | disposition home or self-care (01) ==
PROVIDERS: Emergency Provider Emergency Medicine
DX: R07.9 Chest pain, unspecified (principal); Z72.0 Tobacco use
CPT/HCPCS: 71045; 93005; 99284

== ENCOUNTER 2024-08-27 20:16 | Emergency (ER) | payer MEDICAID, SELFPAY ==
[2024-08-27] VITALS (8 sets, daily range): BP systolic 135–163; BP diastolic 88–125; PULSE 83–122; RESP 13–20; TEMP 36.2; O2SAT 95–100; BMI 25.1
--- NOTE | 2024-08-27 20:16 | ECG_ITS ---
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 Measurements Intervals [place] Rate: 111 P: 68 [place]: 137 QRS: 67 QRSD: 97 T: 47 QT: 303 QTc: 413 Interpretive Statements SINUS TACHYCARDIA POSSIBLE LEFT ATRIAL ENLARGEMENT [-0.1mV P-WAVE IN V1/V2] ABNORMAL RHYTHM ECG Compared to ECG 03/20/2024 18:15:46 Sinus rhythm no longer present Ventricular premature complex(es) no longer present Electronically Signed On 08-28-2024 22:57:50 CDT by Martha Tubbs M.D. [email or web address]
--- NOTE | 2024-08-27 20:30 | XRR_ITS ---
PROCEDURE INFORMATION: Exam: XR Chest Exam date and time: 08/27/2024 9:28 PM Age: 38 years old Clinical indication: Shortness of breath; Additional info: Chest pain TECHNIQUE: Imaging protocol: Radiologic exam of the chest. Views: 1 view. COMPARISON: CR XR chest 1V portable [id number] 03/20/2024 7:01 PM FINDINGS: Lungs: Unremarkable. No consolidation. Pleural spaces: Unremarkable. No pleural effusion. No pneumothorax. Heart/Mediastinum: Unremarkable. No cardiomegaly. Bones/joints: Unremarkable. XR/XR chest 1V portable [id number] IMPRESSION: No acute findings.
--- NOTE | 2024-08-27 20:32 | ED_ITS ---
HPI - Chest Pain 2 General: Chief Complaint: Chest Pain Stated Complaint: chest pain HTN Time Seen by Provider: 08/27/24 20:19 Source: patient Mode of arrival: ambulatory Limitations: no limitations History of Present Illness: Patient is a 38-year-old male who presents to ED today from senior care with a complaint of chest pain. Patient states he first began noticing pain to the left side of his chest yesterday evening. He states symptoms were intermittent throughout the night but continued into today. He does not overly feel short of breath. He does feel like pain is worse with inspiration. He has not been sick recently and has no URI like symptoms including cough. He does tell me he is normally on methadone. He has not had this medication in 8 days since he has been incarcerated. He normally gets this medication from [facility]. Patient is tachycardic and hypertensive upon arrival with a blood pressure 163/125. He states he normally does not have high blood pressure. He is tachycardic at 122. Denies recent drug use as he has been incarcerated. MD complaint: chest pain Onset (ago): day(s) (yesterday evening) Timing of current episode: episodic Prior episodes: Yes Onset: during rest Pain location: left chest Pain radiation: none Severity: moderate Quality: sharp Relieving factors: nothing Exacerbating factors: inspiration Associated symptoms: Deny abdominal pain, dyspnea, fever(s), nausea, palpitations, syncope or vomiting Treatment prior to arrival: none Risk Factors: Coronary artery disease risk factors: none Thoracic aortic dissection risk factors: none Related Data Home Medications Medication Instructions Recorded Confirmed methadone 40 mg soluble tablet 115 mg PO DAILY 07/31/24 07/31/24 Previous Rx's Medication Instructions Recorded ketoconazole 2 % topical cream 1 applic topical BID #15 grams 07/31/24 Allergies Allergy/AdvReac Type Severity Reaction Status Date / Time No Known Allergies Allergy Verified 07/31/24 15:39 Review of Systems 2 Const: Denies: fever(s), chills, body aches, fatigue or malaise Card: Reports: chest pain; Denies: palpitations, irregular heart rhythm, edema, swelling of feet/ankles, lightheadedness, syncope, pre-syncope, dyspnea on exertion, orthopnea, leg pain with exertion or acrocyanosis Resp: Reports: pain on inspiration; Denies: dyspnea, productive cough, non-productive cough, wheezing, hemoptysis or chest congestion GI: Denies: abdominal pain, nausea or vomiting : Denies: flank pain or dysuria Musc: Denies: neck pain, back pain, extremity pain, extremity swelling, joint pain or joint swelling Skin/Breast: Denies: rash Neuro: Denies: headache(s), numbness in extremities, weakness in extremities, sensory changes or dizziness PFSH ED 2 PFSH: Medical History Anaphylaxis Family History Other CAD (coronary artery disease) Social History Smoking and tobacco/nicotine status: current every day tobacco/nicotine user Alcohol intake: never Substance/Drug Use: current Substance/Drug use frequency: few times a week Physical Exam 2 Const: COMMON NORMALS: average body habitus, patient oriented x3, no limitations, alert and well nourished GENERAL APPEARANCE: cooperative and appears older than stated age ORIENTATION/CONSCIOUSNESS: Yes awake, Yes oriented to person, Yes oriented to place and Yes oriented to time OTHER: somewhat diaphoretic, tachycardic, hypertensive HENMT: COMMON NORMALS: normocephalic and atraumatic HEAD & SCALP: normal to inspection, normocephalic and atraumatic FACE & SINUS: normal facial exam and face symmetric Eye: COMMON NORMALS: Equal, round and reactive pupils present and EOMs intact bilaterally GENERAL EYE: appearance normal, both eyes and all related structures and normal light reflex PUPIL: Yes Equal, round and reactive pupils present DIRECT OPHTHALMOSCOPY: Yes normal light reflex Neck/C-Spine: COMMON NORMALS: full ROM, no meningeal signs and no JVD Chest: COMMONS NORMALS: normal inspection of the chest and normal palpation of entire chest wall Resp: COMMON NORMALS: normal respiratory effort and clear to auscultation bilaterally AUSCULTATION: clear to auscultation bilaterally Cardio: COMMON NORMALS: no JVD, regular rate and regular rhythm RATE: r egular rate RHYTHM: regular rhythm GI: COMMON NORMALS: Normal to inspection, nondistended, normoactive bowel sounds present, Soft to palpation, non-tender and no masses PALPATION: Yes Soft to palpation : COMMON NORMALS: Yes no CVA tenderness BLADDER/KIDNEY EXAM: Yes no CVA tenderness Back/Pelvis: COMMON NORMALS: no CVA tenderness, thoracic and lumbar spine normal to inspection, no thoracic nor lumbar tenderness and thoraco-lumbar ROM normal Extremity: COMMON NORMALS: normal to inspection, capillary refill normal, no joint enlargement, no clubbing, cyanosis or edema, no calf tenderness and no pedal edema GENERAL: Yes normal exam except as noted Neuro: MELVI COMA SCALE: document GCS findings Haslet coma scale eye opening: Spontaneous Haslet coma scale verbal response: Orientated Haslet coma scale motor response: Obey commands Haslet coma scale total score: 15 COMMON NORMALS: patient oriented x3 SENSORIUM/ORIENTATION: Yes alert, Yes oriented to person, Yes oriented to place and Yes oriented to time MENINGEAL SIGNS: Y es no meningeal signs Skin: COMMON NORMALS: no rashes or lesions noted GENERAL SKIN EXAM: no rashes or lesions noted Course 2 Vital Signs: Vital signs: Vital Signs Temperature 97.1 F L 08/27/24 20:21 Pulse Rate 104 H 08/27/24 22:00 Respiratory Rate 13 08/27/24 21:45 Blood Pressure 135/102 08/27/24 22:08 Pulse Oximetry 98 08/27/24 22:00 Oxygen Delivery Me thod Room Air 08/27/24 20:24 MDM - Chest Pain Medical Decision Making Patient is no longer tachycardic. Blood pressure has slightly improved. He does feel better upon reexamination. His extensive emergency department visit workup is reassuring. His D-dimer is unremarkable. Baseline troponin is normal. EKG is nonischemic. CXR is unremarkable. There could be some degree of opiate withdrawal with his symptomatology and given the long half-life of methadone however he has been out of this medication for 8 days and I would suspect that most of this should have passed by now. Ultimately I feel patient is stable for discharge back to senior care. Return to ED precautions given. Medical Records I reviewed the patient's medical records. Lab Data I reviewed the patient's lab results. 08/27/24 21:27 08/27/24 21:27 Laboratory Results WBC 15.43 10^3/uL (3.29-11.43) H 08/27/24 21:27 RBC 4.66 10^6/uL (3.85-5.65) 08/27/24: Hgb 13.40 g/dL (11.27-16.99) 08/27/24: Hct 40.3 % (37-53) 08/27/24: MCV 86.5 fl (82-101) 08/27/24: MCH 28.8 pg (27-33) 08/27/24: MCHC 33.3 g/dL (30-55) 08/27/24: RDW 14.6 % (12.1-15.1) 08/27/24: Plt Count 390 10^3/cmm (157-399) 08/27/24: MPV 8.9 fL (7.4-10.4) 08/27/24: Neut % (Auto) 36.0 % 08/27/24: Lymph % (Auto) 58.1 % 08/27/24 [place] % (Auto) 5.2 % 08/27/24: Eos % (Auto) 0.3 % 08/27/24: Baso % (Auto) 0.3 % 08/27/24: Neut # (Auto) 5.56 10^3/uL (1.8-7.7) 08/27/24 Lymph # (Auto) 9.0 10^3/uL (0.8-4.8) H 08/27/24: [place] # (Auto) 0.8 10^3/uL (0.2-0.9) 08/27/24: Eos # (Auto) 0.0 10^3/uL (0.0-0.8) 08/27/24: Baso # (Auto) 0.0 10^3/uL (0.0-0.1) 08/27/24: Nucleated RBC % (auto) 0 % 08/27/24 Nucleated RBCs # 0.0 /100WBC 08/27/24: D-Dimer 0.45 ug/mLFEU (0-0.59) 08/27/24: Sodium 140 mmol/L (136-145) 08/27/24: Potassium 4.3 mmol/L (3.5-5.1) 08/27/24 21:27 Chloride 105 mmol/L (98-107) 08/27/24 21:27 Carbon Dioxide 26 mmol/L (22-29) 08/27/24 21:27 Anion Gap 13.3 (5-19) 08/27/24 21:27 BUN 13 mg/dL (6-20) 08/27/24 21:27 Creatinine 0.7 mg/dL (0.7-1.2) 08/27/24 21:27 GFR Calculation 126.9 mL/min (90-130) 08/27/24 21:27 Glucose 106 mg/dL (65-115) 08/27/24 21: Calculated Osmolality 291 mOsm/kg (285-295) 08/27/24 21: Lactic Acid 1.3 mmol/L (0.5-2.2) 08/27/24 21:27 Calcium 9.1 mg/dL (8.5-10.5) 08/27/24 21: Total Bilirubin 0.4 mg/dL (0.15-1.2) 08/27/24 21:27 AST 25 U/L (0-40) 08/27/24 21:27 ALT 33 U/L (0-41) 08/27/24 21:27 Alkaline Phosphatase 99 U/L (40-130) 08/27/24 21:27 Creatine Kinase 30 U/L (39-308) L 08/27/24 21:27 Troponin T Baseline 7 ng/L (0-15) 08/27/24 21:27 Total Protein 7.6 g/dL (6.6-8.7) 08/27/24 21:27 Albumin 4.4 g/dL (3.5-5.2) 08/27/24 21:27 Globulin 3.2 g/dL (1.3-4.6) 08/27/24 21:27 XR interpretation done by ED provider, pending radiology final review Discharge Plan Discharge Patient Disposition: Home Clinical Impression: Chest pain Qualifiers: Chest pain type: unspecified Qualified Code(s): R07.9 - Chest pain, unspecified Condition: Stable Prescriptions: No Action methadone 40 mg tablet,soluble 115 mg PO DAILY ketoconazole 2 % cream 1 applic topical BID Qty: 15 0RF Discharge Orders: Discharge ED (Routine); Ordered 08/27/24 Ordered By: Cheyanne Randhawa Activity Restrictions/Additional Instructions: You may return to the emergency department for worsening chest pain, shortness of breath, difficulty breathing, fevers, severe headache, lightheadedness/dizziness/passing out episodes, generally feeling worse or unwell, or any other concerns you may have Coding Level of Care Code 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
[2024-08-27 21:35] LABS: Basophils % 0.3 %; Eosinophils % 0.3 %; Hematocrit 40.3 % (37-53); Lymphocytes % 58.1 %; Mean Corpuscular HGB Conc 33.3 g/dL (30-55); Mean Corpuscular Hemoglobin 28.8 pg (27-33); Mean Corpuscular Volume 86.5 fl (82-101); Mean Platelet Volume 8.9 fL (7.4-10.4); Monocytes # 0.8 10^3/uL (0.2-0.9); Monocytes % 5.2 %; Neutrophils # 5.56 10^3/uL (1.8-7.7); Nucleated Red Blood Cells % 0 %; Platelet Count 390 10^3/cmm (157-399); Red Blood Count 4.66 10^6/uL (3.85-5.65); Red Cell Distribution Width 14.6 % (12.1-15.1); White Blood Count 15.43 10^3/uL (3.29-11.43)
[2024-08-27] MEDS: LORazepam 2 mg/mL INJ 1 mL IVP (21:35)
[2024-08-27 21:51] LABS: D Dimer 0.45 ug/mLFEU (0-0.59); Troponin(5th) Baseline 7 ng/L (0-15)
[2024-08-27 21:53] LABS: Alanine Aminotransferase 33 U/L (0-41); Albumin Level 4.4 g/dL (3.5-5.2); Alkaline Phosphatase 99 U/L (40-130); Anion Gap 13.3 (5-19); Aspartate Amino Transferase 25 U/L (0-40); Blood Urea Nitrogen 13 mg/dL (6-20); Calcium 9.1 mg/dL (8.5-10.5); Carbon Dioxide 26 mmol/L (22-29); Chloride 105 mmol/L (98-107); Creatine Phosphokinase 30 U/L (39-308); Creatinine Clr Calc Pharmacy 159.0753; Globulin 3.2 g/dL (1.3-4.6); Glomerular Filtration Rate 126.9 mL/min (90-130); Glucose 106 mg/dL (65-115); Osmolality Calculated 291 mOsm/kg (285-295); Potassium 4.3 mmol/L (3.5-5.1); Sodium 140 mmol/L (136-145); Total Bilirubin 0.4 mg/dL (0.15-1.2); Total Protein 7.6 g/dL (6.6-8.7)
[2024-08-27 21:54] LABS: Lactic Sepsis W/Reflex 1.3 mmol/L (0.5-2.2)
[2024-08-27] MEDS: cloNIDine 0.1 mg Tablet PO (22:08)
[2024-08-27 22:14] LABS: Amphetamines Screen Urine Negative (Negative); Barbiturates Screen Urine Negative (Negative); Benzodiazepines Screen Urine Negative (Negative); Cocaine Screen Urine Negative (Negative); Opiate Screen Urine Negative (Negative); PCP Screen Urine Negative (Negative); THC Screen Urine Positive (Negative)
== END 2024-08-27 22:28 | disposition home or self-care (01) ==
PROVIDERS: Emergency Provider Physician Assistant
DX: R07.9 Chest pain, unspecified (principal); Z72.0 Tobacco use
CPT/HCPCS: 71045; 80053; 80306; 82550; 83605; 84484; 85025; 85378; 93005; 96374; 99285; J2060

== ENCOUNTER 2024-09-01 20:41 | Emergency (ER) | payer MEDICAID, SELFPAY ==
[2024-09-01 20:42] VITALS: BP 142/105; PULSE 89; RESP 18; TEMP 36.6; O2SAT 100; BMI 25.8
--- NOTE | 2024-09-01 20:45 | XRR_ITS ---
PROCEDURE INFORMATION: Exam: XR Chest Exam date and time: 09/01/2024 8:49 PM Age: 38 years old Clinical indication: Pain; Chest pressure; Additional info: Cp TECHNIQUE: Imaging protocol: Radiologic exam of the chest. Views: 1 view. COMPARISON: CR (CHEST, ) 08/27/2024 9:28 PM FINDINGS: Lungs: Unremarkable. No consolidation. Pleural spaces: Unremarkable. No pleural effusion. No pneumothorax. Heart/Mediastinum: Unremarkable. No cardiomegaly. Bones/joints: Unremarkable. XR/XR chest 1V portable [id number] IMPRESSION: No acute findings.
--- NOTE | 2024-09-01 20:47 | ECG_ITS ---
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 Measurements Intervals [place] Rate: 115 P: 60 [place]: 153 QRS: 64 QRSD: 104 T: 45 QT: 316 QTc: 438 Interpretive Statements SINUS TACHYCARDIA POSSIBLE LEFT ATRIAL ENLARGEMENT [-0.1mV P-WAVE IN V1/V2] ABNORMAL RHYTHM ECG Compared to ECG 08/27/2024 20:16:01 No significant changes Electronically Signed On 09-01-2024 23:54:35 CDT by Martha Tubbs M.D. [id number]
--- NOTE | 2024-09-01 20:51 | ED_ITS ---
HPI - Chest Pain 2 General: Chief Complaint: Chest Pain Stated Complaint: chest pain Time Seen by Provider: 09/01/24 20:45 Source: patient and EMS Mode of arrival: EMS Limitations: no limitations History of Present Illness: 38-year-old male is here from detention he st ates that he has been having some hypertension and chest pain today. He states has been off his methadone for 2 to 3 weeks states he believes it is causing some of his pain. He denies any fever denies any cough he is having some anxiety. Associated symptoms: Deny abdominal pain, dyspnea, fever(s), nausea or vomiting Related Data Home Medications Medication Instructions Recorded Confirmed methadone 40 mg soluble tablet 115 mg PO DAILY 07/31/24 07/31/24 Previous Rx's Medication Instructions Recorded ketoconazole 2 % topical cream 1 applic topical BID #15 grams 07/31/24 metoprolol succinate 25 mg 25 mg PO DAILY #30 tabs 09/01/24 tablet,extended release 24 hr Allergies Allergy/AdvReac Type Severity Reaction Status Date / Time No Known Allergies Allergy Verified 09/01/24 20:47 Review of Systems 2 Const: Denies: fever(s), chills, body aches or change in appetite ENMT: Denies: throat pain or dental pain Card: Reports: chest pain Resp: Denies: dyspnea GI: Denies: abdominal pain, nausea, vomiting or diarrhea Musc: Denies: neck pain or back pain Skin/Breast: Denies: rash PFSH ED 2 PFSH: Medical History Anaphylaxis Family History Other CAD (coronary artery disease) Social History Smoking and tobacco/nicotine status: current every day tobacco/nicotine user Alcohol intake: never Substance/Drug Use: current Substance/Drug use frequency: few times a week Physical Exam 2 Const: COMMON NORMALS: no acute distress, patient oriented x3 and healthy appearing HENMT: COMMON NORMALS: normocephalic and atraumatic HEAD & SCALP: n ormocephalic and atraumatic Eye: COMMON NORMALS: conjunctivae normal CONJUNCTIVA: Yes conjunctivae normal Neck/C-Spine: COMMON NORMALS: full ROM and supple Chest: COMMONS NORMALS: normal inspection of the chest and normal palpation of entire chest wall Resp: COMMON NORMALS: normal respiratory effort, No retractions, No use of accessory muscles and clear to auscultation bilaterally AUSCULTATION: clear to auscultation bilaterally Cardio: COMMON NORMALS: regular rate, regular rhythm and No murmurs present (Cardio) RATE: regular rate RHYTHM: regular rhythm Extremity: COMMON NORMALS: normal to inspection and full ROM Neuro: COMMON NORMALS: patient oriented x3, moves all extremities and no focal motor deficits Psych: COMMON NORMALS: mental status grossly normal, Normal thought process present and cooperative THOUGHT PROCESS: Normal thought process present Skin: COMMON NORMALS: no rashes or lesions noted and no wounds GENERAL SKIN EXAM: no rashes or lesions noted Course 2 Vital Signs: Vital signs: Vital Signs Temperature 97.9 F 09/01/24 20:42 Pulse Rate 106 H 09/01/24 20:58 Respiratory Rate 18 09/01/24 20:42 Blood Pressure 142/105 09/01/24 20:58 Pulse Oximetry 98 09/01/24 20:58 Oxygen Delivery Me thod Room Air 09/01/24 20:58 MDM - Chest Pain Medical Decision Making Patient presents for chest pain along with hypertension troponin here is negative chest x-ray EKG are normal he has no signs of PE or cord coronary syndrome. He has no signs of active withdrawals we will start him on metoprolol he is to return if worsening he understands agrees to plan Medical Records I reviewed the patient's medical records. Lab Data I reviewed the patient's lab results. 09/01/24 21:07 09/01/24 21:07 Radiology Impressions Chest X-Ray 09/01/24 20:45 IMPRESSION: No acute findings. Laboratory Results WBC 14.58 10^3/uL (3.29-11.43) H 09/01/24 21:07 RBC 5.22 10^6/uL (3.85-5.65) 09/01/24 21:07 Hgb 14.80 g/dL (11.27-16.99) 09/01/24 21:07 Hct 45.5 % (37-53) 09/01/24 21:07 MCV 87.2 fl (82-101) 09/01/24 21:07 MCH 28.4 pg (27-33) 09/01/24 21:07 MCHC 32.5 g/dL (30-55) 09/01/24 21:07 RDW 14.6 % (12.1-15.1) 09/01/24 21:07 Plt Count 354 10^3/cmm (157-399) 09/01/24 21:07 MPV 9.6 fL (7.4-10.4) 09/01/24 21:07 Neut % (Auto) 34.0 % 09/01/24 21:07 Lymph % (Auto) 60.4 % 09/01/24 21:07 [place] % (Auto) 5.0 % 09/01/24 21:07 Eos % (Auto) 0.2 % 09/01/24 21:07 Baso % (Auto) 0.3 % 09/01/24 21:07 Neut # (Auto) 4.96 10^3/uL (1.8-7.7) 09/01/24 21:07 Lymph # (Auto) 8.8 10^3/uL (0.8-4.8) H 09/01/24 21:07 [place] # (Auto) 0.7 10^3/uL (0.2-0.9) 09/01/24 21:07 Eos # (Auto) 0.0 10^3/uL (0.0-0.8) 09/01/24 21:07 Baso # (Auto) 0.0 10^3/uL (0.0-0.1) 09/01/24 21:07 Nucleated RBC % (auto) 0 % 09/01/24 21:07 Nucleated RBCs # 0.0 /100WBC 09/01/24 21:07 Sodium 140 mmol/L (136-145) 09/01/24 21:07 Potassium 3.9 mmol/L (3.5-5.1) 09/01/24 21:07 Chloride 105 mmol/L (98-107) 09/01/24 21:07 Carbon Dioxide 23 mmol/L (22-29) 09/01/24 21:07 Anion Gap 15.9 (5-19) 09/01/24 21:07 BUN 11 mg/dL (6-20) 09/01/24 21:07 Creatinine 0.7 mg/dL (0.7-1.2) 09/01/24 21:07 GFR Calculation 126.9 mL/min (90-130) 09/01/24 21:07 Calculated Osmolality 291 mOsm/kg (285-295) 09/01/24 21:07 Calcium 9.1 mg/dL (8.5-10.5) 09/01/24 21:07 Total Bilirubin 0.5 mg/dL (0.15-1.2) 09/01/24 21:07 AST 40 U/L (0-40) 09/01/24 21:07 Alkaline Phosphatase 111 U/L (40-130) 09/01/24 21:07 Troponin T Baseline 7 ng/L (0-15) 09/01/24 21:07 Total Protein 8.3 g/dL (6.6-8.7) 09/01/24 21:07 Albumin 4.5 g/dL (3.5-5.2) 09/01/24 21:07 Globulin 3.8 g/dL (1.3-4.6) 09/01/24 21:07 Lipase 37 U/L (13-60) 09/01/24 21:07 All radiology interpretation(s) finalized by discharge EKG Data EKG 1: I personally reviewed and interpreted this EKG as follows: EKG interpretation date: 09/01/24 EKG interpretation time: 20:47 Interpretation: sinus tach hr [address] elevation qrs 104 qtc 384 Discharge Plan Discharge Patient Disposition: Home Clinical Impression: Hypertension Chest pain Qualifiers: Chest pain type: unspecified Qualified Code(s): R07.9 - Chest pain, unspecified Condition: Stable Prescriptions: New metoprolol succinate 25 mg tablet extended release 24 hr 25 mg PO DAILY Qty: 30 0RF No Action methadone 40 mg tablet,soluble 115 mg PO DAILY ketoconazole 2 % cream 1 applic topical BID Qty: 15 0RF Discharge Orders: Discharge ED (Routine); Ordered 09/01/24 Ordered By: Luisito Rae Discharge Diet: Advance as tolerated Discharge Activity: Resume usual activity Patient Instructions: Chest Pain (ED), Hypertension (ED) Coding Level of Care Code 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
[2024-09-01 20:58] VITALS: BP 142/105; PULSE 106; O2SAT 98
[2024-09-01] MEDS: metoprolol tartrate 25 mg Tablet PO (20:59)
[2024-09-01] MEDS: LORazepam 2 mg/mL INJ 1 mL 1 MG IM (21:02)
[2024-09-01 21:15] LABS: Basophils % 0.3 %; Eosinophils % 0.2 %; Hematocrit 45.5 % (37-53); Lymphocytes # 8.8 10^3/uL (0.8-4.8); Lymphocytes % 60.4 %; Mean Corpuscular HGB Conc 32.5 g/dL (30-55); Mean Corpuscular Hemoglobin 28.4 pg (27-33); Mean Corpuscular Volume 87.2 fl (82-101); Mean Platelet Volume 9.6 fL (7.4-10.4); Monocytes # 0.7 10^3/uL (0.2-0.9); Neutrophils # 4.96 10^3/uL (1.8-7.7); Nucleated Red Blood Cells % 0 %; Platelet Count 354 10^3/cmm (157-399); Red Blood Count 5.22 10^6/uL (3.85-5.65); Red Cell Distribution Width 14.6 % (12.1-15.1); White Blood Count 14.58 10^3/uL (3.29-11.43)
[2024-09-01 21:35] LABS: Troponin(5th) Baseline 7 ng/L (0-15)
[2024-09-01 21:43] LABS: Alanine Aminotransferase 63 U/L (0-41); Albumin Level 4.5 g/dL (3.5-5.2); Alkaline Phosphatase 111 U/L (40-130); Anion Gap 15.9 (5-19); Aspartate Amino Transferase 40 U/L (0-40); Blood Urea Nitrogen 11 mg/dL (6-20); Calcium 9.1 mg/dL (8.5-10.5); Carbon Dioxide 23 mmol/L (22-29); Chloride 105 mmol/L (98-107); Creatinine Clr Calc Pharmacy 156.2551; Globulin 3.8 g/dL (1.3-4.6); Glomerular Filtration Rate 126.9 mL/min (90-130); Glucose 124 mg/dL (65-115); Lipase 37 U/L (13-60); Osmolality Calculated 291 mOsm/kg (285-295); Potassium 3.9 mmol/L (3.5-5.1); Sodium 140 mmol/L (136-145); Total Bilirubin 0.5 mg/dL (0.15-1.2); Total Protein 8.3 g/dL (6.6-8.7)
[2024-09-01 21:44] LABS: Slide Review Slide Review Perform
[2024-09-01 22:12] VITALS: BP 136/91; PULSE 87; O2SAT 99
== END 2024-09-01 22:15 | disposition home or self-care (01) ==
PROVIDERS: Emergency Provider Emergency Medicine
DX: R07.9 Chest pain, unspecified (principal); I10 Essential (primary) hypertension
CPT/HCPCS: 36415; 71045; 80053; 83690; 84484; 85025; 93005; 96372; 99285; J2060

== ENCOUNTER 2024-09-04 20:20 | Emergency (ER) | payer MEDICAID, SELFPAY ==
[2024-09-04 20:21] VITALS: BP 136/99; PULSE 89; RESP 15; TEMP 36.7; O2SAT 100; BMI 25.8
[2024-09-04] MEDS: LORazepam 1 mg Tablet PO (20:47)
[2024-09-04 20:55] VITALS: BP 138/101; PULSE 85; RESP 18; O2SAT 98
[2024-09-04 21:37] VITALS: BP 134/88; PULSE 86; RESP 16; O2SAT 98
--- NOTE | 2024-09-05 17:09 | ED_ITS ---
HPI - Recheck/Abnormal Lab/Rx General: Chief Complaint: Recheck/Abnormal Lab/Rx Stated Complaint: High BP Time Seen by Provider: 09/04/24 20:31 Source: patient Mode of arrival: EMS Limitations: no limitations History of Present Illness: Patient is a 38-year-old male who presents to the emergency department from nursing home complaining of shakiness beginning today. He notes that he has been off methadone for 14 days, has been okay until today when he noticed shaking. He also has a history of high blood pressure for which he takes metoprolol, is concerned that he had a blood pressure reading of 150 systolic at nursing home. He has no chest pain, shortness of breath, palpitations, dizziness or lightheadedness, or other symptoms at this time. He is notably anxious at this time, his blood pressure is unremarkable and rest of vitals normal. MD complaint: other (Shaking, off of methadone for 2 weeks) Associated symptoms: none Related Data Home Medications Medication Instructions Recorded Confirmed methadone 40 mg soluble tablet 115 mg PO DAILY 07/31/24 07/31/24 Previous Rx's Medication Instructions Recorded ketoconazole 2 % topical cream 1 applic topical BID #15 grams 07/31/24 metoprolol succinate 25 mg 25 mg PO DAILY #30 tabs 09/01/24 tablet,extended release 24 hr Allergies Allergy/AdvReac Type Severity Reaction Status Date / Time No Known Allergies Allergy Verified 09/01/24 20:47 Review of Systems General: Reports: 10 or more systems reviewed and unremarkable except in HPI and below Const: Denies: fever(s), chills or fatigue Eyes: Denies: change in vision ENMT: Denies: throat pain, ear or mastoid pain or nasal discharge Card: Denies: chest pain, palpitations, swelling of feet/ankles or lightheadedness Resp: Denies: dyspnea, productive cough or wheezing GI: Denies: abdominal pain, nausea, vomiting, diarrhea or constipation : Denies: flank pain, difficulty urinating, dysuria or urinary frequency Musc: Denies: neck pain, back pain or joint pain Skin/Breast: Denies: rash Neuro: Reports: involuntary movements (Shaking); Denies: headache(s), numbness in extremities, weakness in extremities, difficulty walking, dizziness, confusion, Slurred speech present or seizure-like activity [facility] ED PFSH: Medical History Anaphylaxis Family History Other CAD (coronary artery disease) Social History Smoking and tobacco/nicotine status: current every day tobacco/nicotine user Alcohol intake: never Substance/Drug Use: current Substance/Drug use frequency: few times a week Physical Exam Const: COMMON NORMALS: no acute distress, patient oriented x3 and no limitations GENERAL APPEARANCE: cooperative, comfortable and well developed ORIENTATION/CONSCIOUSNESS: Yes awake, Yes oriented to person, Yes oriented to place and Yes oriented to time OTHER: Anxious, no tremor at rest, slight tremor with intention HENMT: COMMON NORMALS: normocephalic, atraumatic and hearing grossly normal bilaterally HEAD & SCALP: normocephalic and atraumatic Eye: COMMON NORMALS: Equal, round and reactive pupils present, EOMs intact bilaterally and conjunctivae normal CONJUNCTIVA: Yes conjunctivae normal PUPIL: Yes Equal, round and reactive pupils present Neck/C-Spine: COMMON NORMALS: full ROM, supple and no JVD Resp: COMMON NORMALS: normal respiratory effort, No retractions, No use of accessory muscles and clear to auscultation bilaterally AUSCULTATION: clear to auscultation bilaterally Cardio: COMMON NORMALS: no JVD, regular rate, regular rhythm, No clicks present (Cardio), No murmurs present (Cardio) and No rub (Cardio) RATE: regular rate RHYTHM: regular rhythm GI: COMMON NORMALS: Normal to inspection, nondistended, normoactive bowel soun ds present, Soft to palpation and non-tender AUSCULTATION: Yes normoactive bowel sounds PALPATION: Yes Soft to palpation RECTAL EXAM: Yes deferred Extremity: COMMON NORMALS: normal to inspection, full ROM and capillary refill normal Neuro: COMMON NORMALS: patient oriented x3, CN's II-XII intact bilaterally, moves all extremities, no focal motor deficits and no sensory deficits noted SENSORIUM/ORIENTATION: Yes oriented to person, Yes oriented to place and Yes oriented to time Psych: COMMON NORMALS: mental status grossly normal and Normal thought process present THOUGHT PROCESS: Normal thought process present Skin: COMMON NORMALS: no rashes or lesions noted GENERAL SKIN EXAM: no rashes or lesions noted Course Vital Signs: Vital signs: Vital Signs Temperature 98.0 F 09/04/24 20:21 Pulse Rate 86 09/04/24 21:37 Respiratory Rate 16 09/04/24 21:37 Blood Pressure 134/88 09/04/24 21:37 Pulse Oximetry 98 09/04/24 21:37 Oxygen Delivery Me thod Room Air 09/04/24 20:55 MDM - Recheck/Abnormal Lab/Rx Medical Decision Making Attempted to get basic labs on patient and did give 1 of Ativan. After the Ativan he stated that he was feeling much better and did not want labs. He does have an appointment with [facility] scheduled, informed him that he can talk to them about the symptoms of methadone withdrawal, and also informed him to get to continue taking his metoprolol for his blood pressure as here in the emergency department his blood pressures have been unremarkable along with his other vitals. He will be discharged back to nursing home. No radiology studies performed this visit Discharge Plan Discharge Patient Disposition: Home Clinical Impression: Methadone withdrawal Condition: Stable Prescriptions: No Action methadone 40 mg tablet,soluble 115 mg PO DAILY ketoconazole 2 % cream 1 applic topical BID Qty: 15 0RF metoprolol succinate 25 mg tablet extended release 24 hr 25 mg PO DAILY Qty: 30 0RF Discharge Orders: Discharge ED (Routine); Ordered 09/04/24 Ordered By: José Vazquez Activity Restrictions/Additional Instructions: Follow-up with [facility]. Continue taking your metoprolol at home. Return with any new or worsening Coding Level of Care Code ED Architect In Training for 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
== END 2024-09-04 21:42 | disposition home or self-care (01) ==
PROVIDERS: Emergency Provider Physician Assistant
DX: F11.23 Opioid dependence with withdrawal (principal); Z72.0 Tobacco use
CPT/HCPCS: 99283

== ENCOUNTER 2024-09-20 00:17 | Emergency (ER) | payer MEDICAID, SELFPAY ==
[2024-09-20 00:21] VITALS: BP 156/100; PULSE 72; RESP 20; TEMP 36.6; O2SAT 100; BMI 25.1
[2024-09-20 00:33] VITALS: BP 165/103; PULSE 71; RESP 18; O2SAT 99
--- NOTE | 2024-09-20 00:33 | XRR_ITS ---
PROCEDURE INFORMATION: Exam: XR Chest Exam date and time: 09/20/2024 12:41 AM Age: 38 years old Clinical indication: Chest pressure; Patient HX: C/O chest pain; Additional info: Cp TECHNIQUE: Imaging protocol: Radiologic exam of the chest. Views: 1 view. COMPARISON: CR (CHEST, ) 09/01/2024 8:49 PM FINDINGS: Lungs: Unremarkable. No consolidation. Pleural spaces: Unremarkable. No pleural effusion. No pneumothorax. Heart/Mediastinum: Unremarkable. No cardiomegaly. Bones/joints: Unremarkable. XR/XR chest 1V portable [id number] IMPRESSION: No acute findings.
--- NOTE | 2024-09-20 00:33 | ECG_ITS ---
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 Measurements Intervals [place] Rate: 72 P: 45 LA: 153 QRS: 53 QRSD: 97 T: 47 QT: 377 QTc: 413 Interpretive Statements SINUS RHYTHM Compared to ECG 09/01/2024 20:47:07 Sinus tachycardia no longer present Electronically Signed On 09-20-2024 14:00:51 APPRENTICESHIP REPRESENTATIVE by Martha Tubbs M.D. [email or web address]
--- NOTE | 2024-09-20 00:34 | W.ED.CHESTPA ---
HPI - Chest Pain General: Chief Complaint: Chest Pain Stated Complaint: CHEST PAIN Time Seen by Provider: 09/20/24 00:31 History of Present Illness: 38-year-old male complains of epigastric pain radiating to his right shoulder. Pain is somewhat worse with deep breathing. No vomiting. Some nausea. No diarrhea. Related Data Home Medications Medication Instructions Recorded Confirmed methadone 40 mg soluble tablet 115 mg PO DAILY 07/31/24 07/31/24 Previous Rx's Medication Instructions Recorded ketoconazole 2 % topical cream 1 applic topical BID #15 grams 07/31/24 metoprolol succinate 25 mg 25 mg PO DAILY #30 tabs 09/01/24 tablet,extended release 24 hr ketorolac 10 mg tablet 10 mg PO TID PRN pain #10 tabs 09/20/24 ondansetron 4 mg disintegrating 4 mg PO Q6H PRN nausea and 09/20/24 tablet vomiting #14 tabs Allergies Allergy/AdvReac Type Severity Reaction Status Date / Time No Known Allergies Allergy Verified 09/01/24 20:47 PFSH ED PFSH: Medical History Anaphylaxis Family History Other CAD (coronary artery disease) Social History Smoking and tobacco/nicotine status: current every day tobacco/nicotine user Alcohol intake: never Substance/Drug Use: current Substance/Drug use frequency: few times a week Physical Exam Const: COMMON NORMALS: no acute distress GENERAL APPEARANCE: cooperative; not ill appearing and not frail appearing HENMT: COMMON NORMALS: normocephalic, atraumatic and Normal external nose present HEAD & SCALP: normocephalic and atraumatic FACE & SINUS: normal facial exam and face symmetric NOSE: Normal external nose present Eye: COMMON NORMALS: Equal, round and reactive pupils present and EOMs intact bilaterally PUPIL: Yes Equal, round and reactive pupils present Neck/C-Spine: GENERAL: Yes trachea midline Chest: CHEST: Yes Symmetrical chest wall rise Resp: COMMON NORMALS: normal respiratory effort, No retractions, No use of accessory muscles and clear to auscultation bilaterally AUSCULTATION: clear to auscultation bilaterally Cardio: COMMON NORMALS: regular rate and regular rhythm RATE: regular rate RHYTHM: regular rhythm GI: COMMON NORMALS: Normal to inspection, nondistended, normoactive bowel sounds present OTHER: Some epigastric tenderness present Extremity: COMMON NORMALS: no pedal edema Neuro: MELVI COMA SCALE: document GCS findings [place] coma scale eye opening: Spontaneous [place] coma scale verbal response: Orientated [place] coma scale motor response: Obey commands [place] coma scale total score: 15 SENSORY EXAM: Yes extremities (intact) Psych: COMMON NORMALS: speech normal SPEECH: Yes normal speech Skin: COMMON NORMALS: no rashes or lesions noted GENERAL SKIN EXAM: no rashes or lesions noted Course Vital Signs: Vital signs: Vital Signs Temperature 98 F 09/20/24 00:21 Pulse Rate 81 09/20/24 03:15 Respiratory Rate 18 09/20/24 03:15 Blood Pressure 145/97 09/20/24 03:15 Pulse Oximetry 97 09/20/24 03:15 Oxygen Delivery Me thod Room Air 09/20/24 03:10 MDM - Chest Pain Medical Decision Making 38-year-old male patient here with right upper quadrant pain. He is afebrile. White blood cell count is 18. BMP is normal. Liver enzymes are minimally elevated with a normal bilirubin. Troponin is 8. Lipase is normal. EKG is normal. CT scan shows gallstones with no evidence of cholecystitis or ductal obstruction. His pain is improved. He will be allowed discharge. Lab Data 09/20/24 01:01 09/20/24 01:01 Radiology Impressions Chest X-Ray 09/20/24 00:33 IMPRESSION: No acute findings. Abdomen/Pelvis CT 09/20/24 01:36 IMPRESSION: 1. Cholelithiasis without evidence of acute cholecystitis. 2. No evidence of acute process Laboratory Results WBC 17.99 10^3/uL (3.29-11.43) H 09/20/24 01:01 RBC 4.98 10^6/uL (3.85-5.65) 09/20/24 01:01 Hgb 14.40 g/dL (11.27-16.99) 09/20/24 01:01 Hct 42.9 % (37-53) 09/20/24 01:01 MCV 86.1 fl (82-101) 09/20/24 01:01 MCH 28.9 pg (27-33) 09/20/24 01:01 MCHC 33.6 g/dL (30-55) 09/20/24 01:01 RDW 14.6 % (12.1-15.1) 09/20/24 01:01 Plt Count 377 10^3/cmm (157-399) 09/20/24 01:01 MPV 8.5 fL (7.4-10.4) 09/20/24 01:01 Neut % (Auto) 47.9 % 09/20/24 01:01 Lymph % (Auto) 44.9 % 09/20/24 01:01 [place] % (Auto) 5.5 % 09/20/24 01:01 Eos % (Auto) 1.1 % 09/20/24 01:01 Baso % (Auto) 0.3 % 09/20/24 01:01 Neut # (Auto) 8.62 10^3/uL (1.8-7.7) H 09/20/24 01:01 Lymph # (Auto) 8.1 10^3/uL (0.8-4.8) H 09/20/24 01:01 [place] # (Auto) 1.0 10^3/uL (0.2-0.9) H 09/20/24 01:01 Eos # (Auto) 0.2 10^3/uL (0.0-0.8) 09/20/24 01:01 Baso # (Auto) 0.1 10^3/uL (0.0-0.1) 09/20/24 01:01 Nucleated RBC % (auto) 0 % 09/20/24 01:01 Nucleated RBCs # 0.0 /100WBC 09/20/24 01:01 Sodium 139 mmol/L (136-145) 09/20/24 01:01 Potassium 4.1 mmol/L (3.5-5.1) 09/20/24 01:01 Chloride 101 mmol/L (98-107) 09/20/24 01:01 Carbon Dioxide 29 mmol/L (22-29) 09/20/24 01:01 Anion Gap 13.1 (5-19) 09/20/24 01:01 BUN 10 mg/dL (6-20) 09/20/24 01:01 Creatinine 0.8 mg/dL (0.7-1.2) 09/20/24 01:01 GFR Calculation 108.8 mL/min (90-130) 09/20/24 01:01 Glucose 105 mg/dL (65-115) 09/20/24 01:01 Calculated Osmolality 287 mOsm/kg (285-295) 09/20/24 01:01 Calcium 9.8 mg/dL (8.5-10.5) 09/20/24 01:01 Total Bilirubin 0.5 mg/dL (0.15-1.2) 09/20/24 01:01 AST 72 U/L (0-40) H 09/20/24 01:01 ALT 120 U/L (0-41) H 09/20/24 01:01 Alkaline Phosphatase 117 U/L (40-130) 09/20/24 01:01 Troponin T Baseline 8 ng/L (0-15) 09/20/24 01:01 Troponin T 120 Minute 6.05 ng/L (0-15) 09/20/24 02:57 Delta Troponin T -1.95 ABS# (0-10) L 09/20/24 02:57 Total Protein 8.0 g/dL (6.6-8.7) 09/20/24 01:01 Albumin 4.5 g/dL (3.5-5.2) 09/20/24 01:01 Globulin 3.5 g/dL (1.3-4.6) 09/20/24 01:01 Lipase 42 U/L (13-60) 09/20/24 01:01 All radiology interpretation(s) finalized by discharge Discharge Plan Discharge Patient Disposition: Home Clinical Impression: Chest pain, Biliary colic Condition: Stable Prescriptions: New ketorolac 10 mg tablet 10 mg PO TID PRN (Reason: pain) Qty: 10 0RF ondansetron 4 mg tablet,disintegrating 4 mg PO Q6H PRN (Reason: nausea and vomiting) Qty: 14 0RF No Action methadone 40 mg tablet,soluble 115 mg PO DAILY ketoconazole 2 % cream 1 applic topical BID Qty: 15 0RF metoprolol succinate 25 mg tablet extended release 24 hr 25 mg PO DAILY Qty: 30 0RF Discharge Orders: Discharge ED (Routine); Ordered 09/20/24 Ordered By: Wolf Sanchez Referrals: Nadir Ingram DO [Physician] - 4-7 days Patient Instructions: Chest Pain (ED), Biliary Colic (ED), Abdominal Pain (ED), Opioid Safety, Pain Management Activity Restrictions/Additional Instructions: Return for fever greater than 100, worsening pain despite treatment, vomiting liquids, other concerning symptoms. Case management has been asked to make you a surgery follow-up appointment regarding her gallbladder. You should hear from them at the beginning of the week. Coding Level of Care Code ED Produce Production Team Member for 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
[2024-09-20] MEDS: ondansetron 2 mg/ML SDV 2 mL 4 MG IVP (00:54)
[2024-09-20] MEDS: ketorolac 30 mg/mL INJ IVP (00:54)
[2024-09-20 01:03] VITALS: BP 153/96; PULSE 69; RESP 18; O2SAT 100
[2024-09-20 01:09] LABS: Basophils # 0.1 10^3/uL (0.0-0.1); Basophils % 0.3 %; Eosinophils # 0.2 10^3/uL (0.0-0.8); Eosinophils % 1.1 %; Hematocrit 42.9 % (37-53); Lymphocytes # 8.1 10^3/uL (0.8-4.8); Lymphocytes % 44.9 %; Mean Corpuscular HGB Conc 33.6 g/dL (30-55); Mean Corpuscular Hemoglobin 28.9 pg (27-33); Mean Corpuscular Volume 86.1 fl (82-101); Mean Platelet Volume 8.5 fL (7.4-10.4); Monocytes % 5.5 %; Neutrophils # 8.62 10^3/uL (1.8-7.7); Neutrophils % 47.9 %; Nucleated Red Blood Cells % 0 %; Platelet Count 377 10^3/cmm (157-399); Red Blood Count 4.98 10^6/uL (3.85-5.65); Red Cell Distribution Width 14.6 % (12.1-15.1); White Blood Count 17.99 10^3/uL (3.29-11.43)
[2024-09-20 01:23] LABS: Troponin(5th) Baseline 8 ng/L (0-15)
[2024-09-20 01:24] LABS: Alanine Aminotransferase 120 U/L (0-41); Albumin Level 4.5 g/dL (3.5-5.2); Alkaline Phosphatase 117 U/L (40-130); Anion Gap 13.1 (5-19); Aspartate Amino Transferase 72 U/L (0-40); Blood Urea Nitrogen 10 mg/dL (6-20); Calcium 9.8 mg/dL (8.5-10.5); Carbon Dioxide 29 mmol/L (22-29); Chloride 101 mmol/L (98-107); Globulin 3.5 g/dL (1.3-4.6); Glomerular Filtration Rate 108.8 mL/min (90-130); Glucose 105 mg/dL (65-115); Lipase 42 U/L (13-60); Osmolality Calculated 287 mOsm/kg (285-295); Potassium 4.1 mmol/L (3.5-5.1); Sodium 139 mmol/L (136-145); Total Bilirubin 0.5 mg/dL (0.15-1.2)
[2024-09-20 01:35] LABS: Slide Review Slide Review Perform
--- NOTE | 2024-09-20 01:36 | CTR_ITS ---
PROCEDURE INFORMATION: Exam: CT Abdomen And Pelvis With Contrast Exam date and time: 09/20/2024 1:48 AM Age: 38 years old Clinical indication: Pain and abnormal findings; Abnormal lab test; Elevated liver enzymes and elevated wbc; Abdominal pain; Patient HX: C/O ruq pain with wbc of 18k and elevated ast and alt. TECHNIQUE: Imaging protocol: Computed tomography of the abdomen and pelvis with contrast. Radiation optimization: All CT scans at this facility use at least one of these dose optimization techniques: automated exposure control; mA and/or kV adjustment per patient size (includes targeted exams where dose is matched to clinical indication); or iterative reconstruction. Contrast material: OMNI 350; Contrast volume: 100 ml; Contrast route: INTRAVENOUS (IV); COMPARISON: CT kidney stone [id number] 01/19/2018 5:56 PM RADIATION DOSE METRICS: Total DLP (mGy-cm): 627.81 FINDINGS: Liver: Normal. No mass. Gallbladder and biliary ducts: Multiple gallstones are present. No pericholecystic inflammatory changes to suggest cholecystitis. Pancreas: Normal. No ductal dilation. Spleen: Normal. No splenomegaly. Adrenal glands: Normal. No mass. Kidneys and ureters: Normal. No hydronephrosis. Stomach and bowel: Increased stool within the colon. No dilated bowel. Appendix: No evidence of appendicitis. Intraperitoneal space: Unremarkable. No free air. No significant fluid collection. Vasculature: Unremarkable. No abdominal aortic aneurysm. Lymph nodes: Unremarkable. No enlarged lymph nodes. Urinary bladder: Unremarkable as visualized. Reproductive: Unremarkable as visualized. Bones/joints: Unremarkable. No acute fracture. Soft tissues: Unremarkable. CT/CT abdomen pelvis w con* [id number] IMPRESSION: 1. Cholelithiasis without evidence of acute cholecystitis. 2. No evidence of acute process
[2024-09-20] MEDS: iohexol 350 mg/mL 500 mL Btl (per mL) IV (01:55)
[2024-09-20] MEDS: labetalol 5 mg/mL SDV 20mL 20 MG IVP (03:05)
[2024-09-20 03:10] VITALS: BP 176/114; PULSE 81; RESP 16; O2SAT 97
[2024-09-20 03:15] VITALS: BP 145/97; PULSE 81; RESP 18; O2SAT 97
[2024-09-20 03:18] LABS: Troponin 5 2HR 6.05 ng/L (0-15); Troponin 5 2HR Delta -1.95 ABS# (0-10)
--- NOTE | 2024-09-22 08:52 | DCPLANNER ---
messaged gen surg for er f/u
== END 2024-09-20 03:25 | disposition home or self-care (01) ==
PROVIDERS: Emergency Provider Emergency Medicine
DX: R07.9 Chest pain, unspecified (principal); K80.50 Calculus of bile duct without cholangitis or cholecystitis without obstruction; Z72.0 Tobacco use
CPT/HCPCS: 36415; 71045; 74177; 80053; 83690; 84484; 85025; 93005; 96374; 96375; 99285; J1885; J2405; J3490